=== PATIENT | female | born 1960 | race American Indian/Alaskan Native ===

== ENCOUNTER 2017-01-16 11:59 | Emergency (ER) | payer MEDICARE ==
[2017-01-16 12:13] VITALS: BMI 41.0
[2017-01-16 12:16] VITALS: RESP 18; TEMP 97.6; O2SAT 100
--- NOTE | 2017-01-16 12:25 | ED PDOC ---
Arrival/HPI - General Chief Complaint: Lower Extremity Problem/Injury Time Seen by Provider: 01/16/17 12:13 Historian: Patient - History of Present Illness Narrative History of Present Illness (Text): 01/16/17 12:17 56yo female in ED for left ankle pain s/p trauma an hour ago. States she twisted her ankle over uneven side walk. Pain with ambulation. denies any other complaint. Past Medical History - Provider Review Nursing Documentation Reviewed: Yes - Infectious Disease Hx of Infectious Diseases: None - Tetanus Immunization Tetanus Immunization: Unknown - Cardiac Hx Cardiac Disorders: Yes Hx Hypertension: Yes Hx Pacemaker: No - Pulmonary Hx Respiratory Disorders: No - Neurological Hx Neurological Disorder: Yes Hx Migraine: Yes Hx Paralysis: No - HEENT Hx HEENT Disorder: Yes Hx Cataracts: Yes (left eye) Hx Glaucoma: Yes (both eyes) Other/Comment: pseudotumor left eye removed - Endocrine/Metabolic Hx Endocrine Disorders: Yes Other/Comment: thyroid nodules - Hematological/Oncological Hx Blood Transfusions: No Hx Blood Transfusion Reaction: No - Integumentary Hx Dermatological Disorder: Yes Hx Eczema: Yes - Musculoskeletal/Rheumatological Hx Musculoskeletal Disorders: No - Gastrointestinal Hx Gastrointestinal Disorders: Yes Hx Crohn's Disease: Yes - Genitourinary/Gynecological Hx Genitourinary Disorders: No - Psychiatric Hx Psychophysiologic Disorder: No Hx Emotional Abuse: No Hx Physical Abuse: No Hx Substance Use: No - Surgical History Hx Appendectomy: Yes Hx Hysterectomy: Yes Hx Orthopedic Surgery: Yes (b/l knee r/p) Other/Comment: 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 - Anesthesia Hx Anesthesia: Yes Hx Anesthesia Reactions: No Hx Malignant Hyperthermia: No - Suicidal Assessment Feels Threatened In Home Enviroment: No Family/Social History - Physician Review Nursing Documentation Reviewed: Yes Family/Social History: Unknown Family HX Smoking Status: Former Smoker Hx Alcohol Use: Yes (OCC WINE) Hx Substance Use: No Hx Substance Use Treatment: No Allergies/Home Meds Allergies/Adverse Reactions: Allergies No Known Allergies Allergy (Verified 01/16/17 12:04) Home Medications: Home Meds Medication Instructions Recorded Confirmed Adalimumab [Humira] 40 mg SC TUE 05/11/15 01/16/17 Alprazolam 0.5 mg PO BID 05/11/15 01/16/17 Divalproex [Depakote] 500 mg PO DAILY 05/11/15 01/16/17 Metoprolol Succinate [Toprol XL] 25 mg PO QAM 05/11/15 01/16/17 Nortriptyline HCl [Pamelor] 25 mg PO BID 05/11/15 01/16/17 Oxycodone HCl/Acetaminophen 1 tab PO Q6H PRN 05/11/15 01/16/17 [Percocet 325 mg-7.5 mg] Rosuvastatin Calcium [Crestor] 20 mg PO QAM 05/11/15 01/16/17 Topiramate [Topamax] 100 mg PO DAILY 05/11/15 01/16/17 Travoprost [Travatan Z 5 ml] 1 drop OU HS 05/11/15 01/16/17 acetaZOLAMIDE [Diamox Sequels] 500 mg PO BID 05/11/15 01/16/17 Review of Systems - Physician Review All systems were reviewed & negative as marked: Yes - Review of Systems Constitutional: Normal Eyes: Normal ENT: Normal Respiratory: Normal Cardiovascular: Normal Gastrointestinal: Normal Genitourinary Female: Normal Musculoskeletal: Arthralgias (Left ankle pain) Skin: Normal Neurological: Normal Endocrine: Normal Hemo/Lymphatic: Normal Psychiatric: Normal Physical Exam Vital Signs Reviewed: Yes Vital Signs Temp Pulse Resp BP Pulse Ox 01/16/17 13:13 74 18 132/89 100 01/16/17 12:08 97.6 F 76 18 136/93 H 100 Temperature: Afebrile Blood Pressure: Normal Pulse: Regular Respiratory Rate: Normal Appearance: Positive for: Well-Appearing, Non-Toxic, Comfortable Pain Distress: None Mental Status: Positive for: Alert and Oriented X 3 - Systems Exam Head: Present: Atraumatic, Normocephalic Pupils: Present: PERRL Extroacular Muscles: Present: EOMI Conjunctiva: Present: Normal Mouth: Present: Moist Mucous Membranes Neck: Present: Normal Range of Motion Respiratory/Chest: Present: Clear to Auscultation, Good Air Exchange. No: Respiratory Distress, Accessory Muscle Use Cardiovascular: Present: Regular Rate and Rhythm, Normal S1, S2. No: Murmurs Abdomen: Present: Normal Bowel Sounds. No: Tenderness, Distention, Peritoneal Signs Back: Present: Normal Inspection Upper Extremity: Present: Normal Inspection. No: Cyanosis, Edema Lower Extremity: Present: NORMAL PULSES, Normal ROM, Tenderness (Left lateral ankle), Neurovascularly Intact. No: Edema, Swelling, Deformity Neurological: Present: GCS=15, CN II-XII Intact, Speech Normal Skin: Present: Warm, Dry, Normal Color. No: Rashes Psychiatric: Present: Alert, Oriented x 3, Normal Insight, Normal Concentration Medical Decision Making ED Course and Treatment: 01/16/17 12:55 Left ankle xray - No acute fracture/dislocation noted Eloy wrap applied. Walking cane given Advised to RICE ankle. To f/u with her PMD - RAD Interpretation Radiology Orders: 01/16/17 12:13 ANKLE LEFT 3 VIEWS ROUTINE [RAD] Stat - Medication Orders Current Medication Orders: Discontinued Medications Ibuprofen (Motrin Tab) 600 mg PO STAT STA Stop: 01/16/17 12:56 Last Admin: 01/16/17 13:02 Dose: 600 mg MAR Pain/Vitals Document 01/16/17 13:02 HI (Rec: 01/16/17 13:03 HI [facility] [id number]) Pain Reassessment Is This A Pain ReAssessment? No Sleep Is patient sleeping during reassessment? No Presence of Pain Presence of Pain Yes Pain Scale Used Pain Scale Used Numeric Location Left, Right or Bilateral Left Pain Location Body Site Ankle Intensity 7 Disposition/Present on Arrival - Present on Arrival Any Indicators Present on Arrival: No History of DVT/PE: No History of Uncontrolled Diabetes: No Urinary Catheter: No History of Decub. Ulcer: No History Surgical Site Infection Following: None - Disposition Have Diagnosis and Disposition been Completed?: Yes Diagnosis: Ankle sprain Disposition: HOME/ ROUTINE Disposition Time: 13:00 Patient Plan: Discharge Patient Problems: Current Active Problems Problem Status Onset Ankle sprain Acute Condition: STABLE Discharge Instructions (ExitCare): Ankle Sprain (ED) Additional Instructions: Rest, ice, compress and elevate ankle Follow up with your Doctor Return to ED for any new symptoms Prescriptions: Ibuprofen [Motrin Tab] 600 mg PO Q6 #20 tab Referrals: Larry Fishman MD [Primary Care Provider] - Follow up with primary Forms: [employer] (Armenian)
[2017-01-16 13:13] VITALS: BP 132/89; PULSE 74
--- NOTE | 2017-01-16 13:36 | RAD ---
PROCEDURE: Left Ankle Radiographs. HISTORY: ankle pain COMPARISON: None FINDINGS: BONES: Normal. No fracture. JOINTS: Normal. No osteoarthritis. Ankle mortise maintained. Talar dome intact SOFT TISSUES: Small pretibial calcifications are appreciated suggestive of probable phleboliths and there is a prominent plantar calcaneal spur identified as well. OTHER FINDINGS: None. IMPRESSION: No acute fracture or dislocation left ankle.
== END 2017-01-16 13:28 | disposition home or self-care (01) ==
LOC: ED 11:59
DX: S93.402A Sprain of unspecified ligament of left ankle, initial encounter (principal); X50.1XXA Overexertion from prolonged static or awkward postures, initial encounter; Y92.480 Sidewalk as the place of occurrence of the external cause; I10 Essential (primary) hypertension; Z87.891 Personal history of nicotine dependence

== ENCOUNTER 2017-03-25 16:36 | Emergency (ER) | payer MEDICARE, BC ==
[2017-03-25 16:37] VITALS: BMI 38.8
[2017-03-25 17:06] VITALS: RESP 18; TEMP 98.4; O2SAT 100
--- NOTE | 2017-03-25 17:25 | ED PDOC ---
Arrival/HPI - General Chief Complaint: Abnormal Skin Integrity Time Seen by Provider: 03/25/17 17:07 - History of Present Illness Narrative History of Present Illness (Text): 57F c/o pain above her left eye after a fall 2 days ago on sunday night. she says she tripped on the stairs and hit her face on a step. no LOC. she comes in today bc the pain seems worse and also she has had some drainage from the corner of the eye. hx of glaucoma and sees Dr Sequeira. Past Medical History - Infectious Disease Hx of Infectious Diseases: None - Tetanus Immunization Tetanus Immunization: Unknown - Cardiac Hx Cardiac Disorders: Yes Hx Hypertension: Yes Hx Pacemaker: No - Pulmonary Hx Respiratory Disorders: No - Neurological Hx Neurological Disorder: Yes Hx Migraine: Yes Hx Paralysis: No - HEENT Hx HEENT Disorder: Yes Hx Cataracts: Yes (left eye) Hx Glaucoma: Yes (both eyes) Other/Comment: pseudotumor left eye removed - Endocrine/Metabolic Hx Endocrine Disorders: Yes Other/Comment: thyroid nodules - Hematological/Oncological Hx Blood Transfusions: No Hx Blood Transfusion Reaction: No - Integumentary Hx Dermatological Disorder: Yes Hx Eczema: Yes - Musculoskeletal/Rheumatological Hx Musculoskeletal Disorders: Yes - Gastrointestinal Hx Gastrointestinal Disorders: Yes Hx Crohn's Disease: Yes - Genitourinary/Gynecological Hx Genitourinary Disorders: No - Psychiatric Hx Psychophysiologic Disorder: No Hx Emotional Abuse: No Hx Physical Abuse: No Hx Substance Use: No - Surgical History Hx Orthopedic Surgery: Yes (L KNEE, R KNEE, B/L WRISTS) - Anesthesia Hx Anesthesia: Yes Hx Anesthesia Reactions: No Hx Malignant Hyperthermia: No - Suicidal Assessment Feels Threatened In Home Enviroment: No Family/Social History Family/Social History: Other (nc) Smoking Status: Former Smoker Hx Alcohol Use: Yes (OCC WINE) Hx Substance Use: No Hx Substance Use Treatment: No Allergies/Home Meds Allergies/Adverse Reactions: Allergies No Known Allergies Allergy (Verified 03/25/17 16:57) Home Medications: Home Meds Medication Instructions Recorded Confirmed Adalimumab [Humira] 40 mg SC TUE 05/11/15 03/25/17 Alprazolam 0.5 mg PO BID 05/11/15 03/25/17 Divalproex [Depakote] 500 mg PO DAILY 05/11/15 03/25/17 Metoprolol Succinate [Toprol XL] 25 mg PO QAM 05/11/15 03/25/17 Nortriptyline HCl [Pamelor] 25 mg PO BID 05/11/15 03/25/17 Oxycodone HCl/Acetaminophen 1 tab PO Q6H PRN 05/11/15 03/25/17 [Percocet 325 mg-7.5 mg] Rosuvastatin Calcium [Crestor] 20 mg PO QAM 05/11/15 03/25/17 Topiramate [Topamax] 100 mg PO DAILY 05/11/15 03/25/17 Travoprost [Travatan Z 5 ml] 1 drop OU HS 05/11/15 03/25/17 acetaZOLAMIDE [Diamox Sequels] 500 mg PO BID 05/11/15 03/25/17 Review of Systems - Review of Systems Constitutional: absent: Fevers Eyes: absent: Vision Changes, Photophobia ENT: absent: Hearing Changes Respiratory: absent: SOB Cardiovascular: absent: Chest Pain Gastrointestinal: absent: Nausea, Vomiting Musculoskeletal: absent: Neck Pain Neurological: absent: Headache Physical Exam Vital Signs Reviewed: Yes Vital Signs Temp Pulse Resp BP Pulse Ox 03/25/17 17:00 98.4 F 97 H 18 157/91 H 100 Appearance: Positive for: Well-Appearing, Non-Toxic, Comfortable Pain Distress: None Mental Status: Positive for: Alert and Oriented X 3 - Systems Exam Head: Present: Abrasion (supericial nasal bridge) Pupils: Present: PERRL, Other (globes are atraumatic without hemorrhage. no obvious lacrimal duct injury. no active drainage or bleeding. ) Extroacular Muscles: Present: EOMI Conjunctiva: Present: Normal Mouth: Present: Moist Mucous Membranes Nose (Internal): No: Septal Hematoma, Epistaxis Neck: Present: Normal Range of Motion. No: MIDLINE TENDERNESS Neurological: Present: GCS=15, CN II-XII Intact, Motor Func Grossly Intact, Normal Sensory Function, Other (no focal deficits) Medical Decision Making - RAD Interpretation Radiology Orders: 03/25/17 17:07 ORBITS/ FACIALS W/O CONTRAST [CT] Stat - Medication Orders Current Medication Orders: Discontinued Medications Ibuprofen (Motrin Tab) 800 mg PO STAT STA Stop: 03/25/17 17:09 Last Admin: 03/25/17 17:55 Dose: 800 mg Disposition/Present on Arrival - Present on Arrival Any Indicators Present on Arrival: No History of DVT/PE: No History of Uncontrolled Diabetes: No Urinary Catheter: No History of Decub. Ulcer: No History Surgical Site Infection Following: None - Disposition Have Diagnosis and Disposition been Completed?: Yes Diagnosis: Facial contusion Disposition: HOME/ ROUTINE Disposition Time: 18:59 Condition: STABLE Additional Instructions: Please follow up with Dr Sequeira on Sunday. Return to the ER for any worsening symptoms or for any other concerns. Referrals: Nicolas Sequeira MD [Staff Provider] - Follow up with primary Forms: [employer] (Australian)
--- NOTE | 2017-03-25 18:56 | CT ---
EXAM: CT Maxillofacial Without Intravenous Contrast EXAM DATE/TIME: 03/25/2017 5:07 PM CLINICAL HISTORY: 57 years old, female; Injury or trauma; Fall; Initial encounter; Abrasion; Nose and orbit/periorbital; Bilateral; Additional info: Fell facial pain TECHNIQUE: Axial computed tomography images of the face without intravenous contrast. All CT scans at this facility use one or more dose reduction techniques, viz.: automated exposure control; ma/kV adjustment per patient size (including targeted exams where dose is matched to indication; i.e. head); or iterative reconstruction technique. Coronal and sagittal reformatted images were created and reviewed. COMPARISON: There are no prior studies for comparison. FINDINGS: Bones/joints: There are no facial bone fractures. There are degenerative changes in the visualized cervical spine. Soft tissues: There are no facial masses. There is soft tissue swelling and bruising in the left cheek Orbits: There are no acute orbital abnormalities. Salivary glands: Parotid and submandibular glands are unremarkable. Sinuses: Unremarkable Ears and mastoids: Middle ears and mastoids are unremarkable. Dental: There are dental caries erosions. Streak artifact from dental fillings degrades image quality. Brain: No focal abnormalities are seen in visualized portion of the brain. IMPRESSION: Left facial bruising, no facial bone fracture; dental disease
[2017-03-25 19:44] VITALS: BP 143/68; PULSE 83
== END 2017-03-25 19:10 | disposition home or self-care (01) ==
LOC: ED 16:36
DX: S00.83XA Contusion of other part of head, initial encounter (principal); W10.8XXA Fall (on) (from) other stairs and steps, initial encounter; Y92.89 Other specified places as the place of occurrence of the external cause

== ENCOUNTER 2017-06-26 21:53 | Observation (INO) | payer MEDICARE, BC ==
--- NOTE | 2017-06-26 22:39 | ED PDOC ---
Arrival/HPI - General Chief Complaint: Psychiatric Evaluation Time Seen by Provider: 06/26/17 21:55 Historian: Patient - History of Present Illness Narrative History of Present Illness (Text): 06/26/17 22:36 Shirin Milian is a 57 year old female, whose past medical history includes depression, Crohn's disease, pseudotumor cerebri, hypertension, degenerative joint disease, and anemia, who presents to the Emergency department brought in by EMS accompanied by family status post overdose. states tonight patient told him she took 12 tablets of Viibryd. notes she has been depressed for a while and has been seen by a psychiatrist in the past. On arrival, patient is mildly-agitated and non-verbal. Limited HPI and ROS secondary to patient's altered mental status. Time/Duration: Other (tonight) Symptom Course: Unchanged Activities at Onset: Light Context: Home Past Medical History - Provider Review Nursing Documentation Reviewed: Yes - Infectious Disease Hx of Infectious Diseases: None - Tetanus Immunization Tetanus Immunization: Unknown - Cardiac Hx Cardiac Disorders: Yes Hx Hypertension: Yes - Pulmonary Hx Respiratory Disorders: No - Neurological Hx Neurological Disorder: Yes Hx Migraine: Yes - HEENT Hx HEENT Disorder: Yes Hx Cataracts: Yes (left eye) Hx Glaucoma: Yes (both eyes) Other/Comment: pseudotumor left eye removed - Renal Hx Renal Disorder: No - Endocrine/Metabolic Hx Endocrine Disorders: Yes Other/Comment: thyroid nodules - Hematological/Oncological Hx Blood Disorders: No - Integumentary Hx Dermatological Disorder: Yes Hx Eczema: Yes - Musculoskeletal/Rheumatological Hx Musculoskeletal Disorders: Yes - Gastrointestinal Hx Gastrointestinal Disorders: Yes Hx Crohn's Disease: Yes - Genitourinary/Gynecological Hx Genitourinary Disorders: No - Psychiatric Hx Psychophysiologic Disorder: No Hx Emotional Abuse: No Hx Physical Abuse: No Hx Substance Use: No - Surgical History Hx Orthopedic Surgery: Yes (L KNEE, R KNEE, B/L WRISTS) - Anesthesia Hx Anesthesia: Yes Hx Anesthesia Reactions: No Hx Malignant Hyperthermia: No - Suicidal Assessment Feels Threatened In Home Enviroment: No Family/Social History - Physician Review Nursing Documentation Reviewed: Yes Family/Social History: Unknown Family HX Smoking Status: Former Smoker Hx Alcohol Use: Yes (OCC WINE) Hx Substance Use: No Hx Substance Use Treatment: No Allergies/Home Meds Allergies/Adverse Reactions: Allergies No Known Allergies Allergy (Verified 06/26/17 22:20) Home Medications: Home Meds Medication Instructions Recorded Confirmed Divalproex [Depakote DR] 500 mg PO DAILY 05/11/15 06/26/17 Metoprolol Succinate [Toprol XL] 25 mg PO QAM 05/11/15 06/26/17 Topiramate [Topamax] 100 mg PO DAILY 05/11/15 06/26/17 acetaZOLAMIDE [Diamox Sequels 500 500 mg PO BID 05/11/15 06/26/17 mg SR Cap] Pantoprazole [Protonix EC Tab] 40 mg PO DAILY 06/26/17 06/26/17 Verapamil [Calan Tab] 80 mg PO TID 06/26/17 06/26/17 Review of Systems - Review of Systems Systems not reviewed;Unavailable: Altered Mental Status Psychiatric: Depression, Suicidal Ideation Physical Exam Vital Signs Reviewed: Yes Vital Signs Temp Pulse Resp BP Pulse Ox 06/27/17 01:05 82 16 138/82 96 06/27/17 00:06 89 18 119/69 96 06/26/17 22:50 98.1 F 88 12 141/88 96 Temperature: Afebrile Blood Pressure: Normal Pulse: Regular Respiratory Rate: Normal Appearance: Positive for: Well-Appearing Pain Distress: None Mental Status: Positive for: Agitated (Mildy-agitated, non-verbal) - Systems Exam Head: Present: Atraumatic, Normocephalic Pupils: Present: PERRL Extroacular Muscles: Present: EOMI Conjunctiva: Present: Normal Mouth: Present: Moist Mucous Membranes Respiratory/Chest: Present: Clear to Auscultation, Good Air Exchange. No: Respiratory Distress, Accessory Muscle Use Cardiovascular: Present: Regular Rate and Rhythm, Normal S1, S2. No: Murmurs Abdomen: No: Tenderness, Distention, Peritoneal Signs Upper Extremity: Present: Normal Inspection. No: Cyanosis, Edema Lower Extremity: Present: Normal Inspection. No: Edema Neurological: Present: CN II-XII Intact, Motor Func Grossly Intact, Normal Sensory Function, Other (Non-verbal) Skin: Present: Warm, Dry, Normal Color. No: Rashes Psychiatric: Present: Agitated (Mildly agitated) Medical Decision Making ED Course and Treatment: 06/26/17 22:36 Impression: 57 year old female brought in s/p overdose tonight. Plan: -- EKG -- Labs, alcohol level, CPK, valproic acid -- Urinalysis, urine drug screen -- Reassess and disposition Prior Visits: Notes and results from previous visits were reviewed. On 03/25/2017, pt was seen in the Emergency department s/p mechanical fall with pain over her left eye. Pt was d/c home. Progress Notes: Reviewed EKG, NSR at 92 bpm. QTc measures 470. 06/27/17 00:05 Case discussed with medical transcriber, who is aware and agrees with plan. 06/27/17 00:[address] Doe, who is aware and agrees with plan. Accepts pt in to hospitalist service. Pt will be admitted to the ICU for overdose. 06/27/17 01:20 rn discusswed with loyda abreu advises monitor for serotonin syndrome. pt initially agitated ativan given. - Lab Interpretations Lab Results: 06/26/17 22:58 06/26/17 23:40 Lab Results 06/26/17 23:40: Sodium 144, Potassium 3.6, Chloride 114 H, Carbon Dioxide 22, Anion Gap 12, BUN 15, Creatinine 1.0, Est GFR ( Amer) > 60, Est GFR (Non- Af Amer) 57, Random Glucose 111 H, Calcium 9.6, Total Bilirubin 0.1 L, AST 22, ALT 27, Alkaline Phosphatase 72, Total Creatine Kinase 126, Total Protein 6.8, Albumin 3.7, Globulin 3.1, Albumin/Globulin Ratio 1.2 06/26/17 22:58: Valproic Acid 52 06/26/17 22:58: Alcohol, Quantitative < 10 06/26/17 22:58: Salicylates < 1 L, Acetaminophen < 10.0 L 06/26/17 22:58: Urine Opiates Screen Negative, Urine Methadone Screen Negative, Ur Barbiturates Screen Negative, Ur Phencyclidine Scrn Negative, Ur Amphetamines Screen Negative, U Benzodiazepines Scrn Positive, U Oth Cocaine Metabols Negative, U Cannabinoids Screen Negative 06/26/17 22:58: Urine Color Yellow, Urine Appearance Sl cloudy, Urine pH 6.5, Ur Specific Onset 1.020, Urine Protein Negative, Urine Glucose (UA) Negative, Urine Ketones Negative, Urine Blood Trace-lysed H, Urine Nitrate Negative, Urine Bilirubin Negative, Urine Urobilinogen 0.2, Ur Leukocyte Esterase Small H , Urine RBC 0 - 2, Urine WBC 1 - 3, Ur Epithelial Cells 3 - 4, Urine Bacteria Small 06/26/17 22:58: WBC 7.5 D, RBC 4.27, Hgb 13.3, Hct 40.5, MCV 94.8, MCH 31.1, MCHC 32.8, RDW 14.7 H, Plt Count 228, MPV 11.0, Gran % 38.3 L, Lymph % (Auto) 52.7 H, Dade % (Auto) 7.7 H, Eos % (Auto) 1.2 L, Baso % (Auto) 0.1, Gran # 2.89 , Lymph # (Auto) 4.0 H, Dade # (Auto) 0.6, Eos # (Auto) 0.1, Baso # (Auto) 0.01 I have reviewed the lab results: Yes - EKG Interpretation Interpreted by ED Physician: Yes Type: 12 lead EKG - Medication Orders Current Medication Orders: Acetaminophen (Tylenol 325mg Tab) 650 mg PO Q4H PRN PRN Reason: headache Last Admin: 06/27/17 13:48 Dose: 650 mg [facility] Pain/Vitals Document 06/27/17 13:48 (Rec: 06/27/17 13:49 [id number]) Pain Reassessment Is This A Pain ReAssessment? No Presence of Pain Presence of Pain Yes Pain Scale Used Pain Scale Used Numeric Location Left, Right or Bilateral Bilateral Pain Location Body Systems Analyst Engineer Intensity 5 Scale Used Numeric Pain Behavior Rubbing Site Facial Grimacing Alleviating Factors Medication Re-Assess: [facility] Pain/Vitals Document 06/27/17 14:48 MMA (Rec: 06/27/17 16:42 MMA [id number]) Pain Reassessment Is This A Pain ReAssessment? Yes Sleep Is patient sleeping during reassessment? Yes Clonazepam (Klonopin) 0.5 mg PO HS EMELYN PRN Reason: Protocol Fluoxetine HCl (Prozac) 10 mg PO DAILY [facility] Last Admin: 06/27/17 10:08 Dose: 10 mg Lorazepam (Ativan) 1 mg IVP Q6H PRN; Protocol PRN Reason: Anxiety Pantoprazole Sodium (Protonix Inj) 40 mg IVP DAILY [facility] Last Admin: 06/27/17 10:08 Dose: 40 mg IVP Administration Document 06/27/17 10:08 MMA (Rec: 06/27/17 10:08 MMA [id number]) Charges for Administration # of IVP Administrations 1 Discontinued Medications Sodium Chloride (Sodium Chloride 0.9%) 1,000 mls @ 125 mls/hr IV .Q8H [facility] Last Admin: 06/27/17 01:56 Dose: 125 mls/hr eMAR Start Stop Document 06/27/17 01:56 SS (Rec: 06/27/17 01:57 SS [facility] [id number]) Intravenous Solution Start Date 06/27/17 Start Time 01:57 Lorazepam (Ativan) 1 mg IVP ONCE ONE PRN Reason: Protocol Stop: 06/26/17 23:10 Last Admin: 06/26/17 23:17 Dose: 1 mg IVP Administration Document 06/26/17 23:17 SS (Rec: 06/26/17 23:25 SS [facility] [id number]) Charges for Administration # of IVP Administrations 1 Re-Assess: Reassess Psych Meds Document 06/26/17 23:47 MHA (Rec: 06/27/17 05:48 [facility] [id number]) Reassess Psych Med Effective - Scribe Statement The provider has reviewed the documentation as recorded by the Kira Cline Provider Scribe Attestation: All medical record entries made by the Scribe were at my direction and personally dictated by me. I have reviewed the chart and agree that the record accurately reflects my personal performance of the history, physical exam, medical decision making, and the department course for this patient. I have also personally directed, reviewed, and agree with the discharge instructions and disposition. Disposition/Present on Arrival - Present on Arrival Any Indicators Present on Arrival: No History of DVT/PE: No History of Uncontrolled Diabetes: No Urinary Catheter: No History of Decub. Ulcer: No History Surgical Site Infection Following: None - Disposition Have Diagnosis and Disposition been Completed?: Yes Diagnosis: Overdose, Serotonin syndrome Disposition: HOSPITALIZED Disposition Time: 01:21 Patient Problems: Current Active Problems Problem Status Onset Overdose Acute Serotonin syndrome Acute Condition: CRITICAL
[2017-06-26 23:05] LABS: PH,URINE 6.5 (4.7-8.0); URINE BILIRUBIN NEGATIVE (NEGATIVE); URINE BLOOD TRACE-LYSED (NEGATIVE); URINE GLUCOSE (UA) NEGATIVE (NEGATIVE); URINE LEUKOCYTE ESTERASE SMALL Leu/uL (NEGATIVE); URINE PROTEIN NEGATIVE mg/dL (<30 mg/dL); URINE UROBILINOGEN 0.2 E.U./dL (<1 E.U./dL)
[2017-06-26 23:06] LABS: BASO # 0.01 K/mm3 (0.0-2.0); BASO % 0.1 % (0.0-3.0); EOS # 0.1 (0.0-0.7); EOS % 1.2 % (1.5-5.0); GRAN # 2.89 (1.4-6.5); GRAN % 38.3 % (50.0-68.0); HEMOGLOBIN 13.3 g/dL (12.0-16.0); LYMPH % 52.7 % (22.0-35.0); MEAN CELL VOLUME 94.8 fl (80.0-105.0); MEAN CORPUSCULAR HEMOGLOBIN 31.1 pg (25.0-35.0); MEAN CORPUSCULAR HGB CONC 32.8 g/dl (31.0-37.0); MONO # 0.6 (0.1-0.6); MONO % 7.7 % (1.0-6.0); RBC 4.27 10^6/uL (3.5-6.1); RED CELL DISTRIBUTION WIDTH 14.7 % (11.5-14.5); WHITE BLOOD COUNT 7.5 10^3/ul (4.5-11.0)
[2017-06-26 23:07] LABS: URINE APPEARANCE SL CLOUDY (CLEAR); URINE COLOR YELLOW (YELLOW)
[2017-06-26 23:14] LABS: ACETAMINOPHEN < 10.0 ug/ml (10.0-20.0); SALICYLATE < 1 mg/dL (2.0-20.0)
[2017-06-26 23:40] LABS: URINE BACTERIA SMALL (NEG); URINE RBC 0 - 2 /hpf (0-2)
[2017-06-26 23:41] LABS: BARBITURATES, UR NEGATIVE (NEGATIVE); BENZODIAZEPINES, UR POSITIVE (NEGATIVE); OPIATES, UR NEGATIVE (NEGATIVE); PHENCYCLIDINE, UR NEGATIVE (NEGATIVE)
[2017-06-27] LABS: ALB/GLOB RATIO 1.2 (1.1-1.8); ALBUMIN 3.7 g/dL (3.0-4.8); ALT/SGPT 27 U/L (7-56); AST/SGOT 22 U/L (14-36); BLOOD UREA NITROGEN 15 mg/dL (7-21); CALCIUM 9.6 mg/dL (8.4-10.5); GFR AFRICAN-AMERICAN > 60; GFR NON-AFRICAN AMERICAN 57
[2017-06-27] MEDS ORDERED: Sodium Chloride 0.9% 1,000 ML IV SCH (01:00)
--- NOTE | 2017-06-27 01:14 | CP.PCM.HP ---
<Christal Montero - Last Filed: 06/27/17 02:58> History of Present Illness - History of Present Illness History of Present Illness: PGY-2 h&p for hospitalist service 57 year old female, whose past medical history includes depression, Crohn's disease, pseudotumor cerebri, hypertension, degenerative joint disease, and anemia, who presents to the Emergency department brought in by EMS accompanied by family status post overdose. Patient is lethargic and sleepy, she is unable to answer question, history provided by family at bedside and ED. states tonight patient told him she took 12 tablets of Viibryd. notes she has been depressed for a while and has been seen by a psychiatrist in the past. states that they had a conversation earlier in the evening and she went to lay down, a few hours later patient told her she took 12 tablets of viibryd. Per ED on arrival, patient was mildly-agitated and non- verbal. Limited HPI and ROS secondary to patient's altered mental status. PMH:depression, Crohn's disease, pseudotumor cerebri, hypertension, degenerative joint disease, and anemia, PSH: bilateral knee, bilateral wrist social history: light smoker, social alcohol use, no illicit drug use family history: heart disease allergy: nkda Present on Admission - Present on Admission Any Indicators Present on Admission: No Review of Systems - Review of Systems Systems not reviewed;Unavailable: Altered Mental Status Past Patient History - Infectious Disease Hx of Infectious Diseases: None - Tetanus Immunizations Tetanus Immunization: Unknown - Past Social History Smoking Status: Former Smoker - CARDIAC Hx Cardiac Disorders: Yes Hx Hypertension: Yes - PULMONARY Hx Respiratory Disorders: No - NEUROLOGICAL Hx Neurological Disorder: Yes Hx Migraine: Yes - HEENT Hx HEENT Problems: Yes Hx Cataracts: Yes (left eye) Hx Glaucoma: Yes (both eyes) Other/Comment: pseudotumor left eye removed - RENAL Hx Chronic Kidney Disease: No - ENDOCRINE/METABOLIC Hx Endocrine Disorders: Yes Other/Comment: thyroid nodules - HEMATOLOGICAL/ONCOLOGICAL Hx Blood Disorders: No - INTEGUMENTARY Hx Dermatological Problems: Yes Hx Eczema: Yes - MUSCULOSKELETAL/RHEUMATOLOGICAL Hx Musculoskeletal Disorders: Yes - GASTROINTESTINAL Hx Gastrointestinal Disorders: Yes Hx Crohn's Disease: Yes - GENITOURINARY/GYNECOLOGICAL Hx Genitourinary Disorders: No - PSYCHIATRIC Hx Psychophysiologic Disorder: No Hx Emotional Abuse: No Hx Physical Abuse: No Hx Substance Use: No - SURGICAL HISTORY Hx Orthopedic Surgery: Yes (L KNEE, R KNEE, B/L WRISTS) - ANESTHESIA Hx Anesthesia: Yes Hx Anesthesia Reactions: No Hx Malignant Hyperthermia: No Meds Allergies/Adverse Reactions: Allergies Allergy/AdvReac Type Severity Reaction Status Date / Time No Known Allergies Allergy Verified 06/26/17 22:20 Physical Exam - Head Exam Head Exam: ATRAUMATIC, NORMOCEPHALIC - Eye Exam Eye Exam: Normal appearance, PERRL (right, s/p surgery left eye). absent: Scleral icterus Pupil Exam: absent: Fixed, Miosis, Mydriatic - ENT Exam ENT Exam: Mucous Membranes Moist - Respiratory Exam Respiratory Exam: Clear to Auscultation Bilateral, NORMAL BREATHING PATTERN. absent: Rhonchi, Wheezes, Respiratory Distress - Cardiovascular Exam Cardiovascular Exam: REGULAR RHYTHM, +S1, +S2. absent: Tachycardia, Diastolic murmur, Systolic Murmur - GI/Abdominal Exam GI & Abdominal Exam: Normal Bowel Sounds, Soft. absent: Distended, Firm, Tenderness - Extremities Exam Extremities exam: Positive for: normal inspection. Negative for: pedal edema - Expanded Neurological Exam Expanded Neurological exam: Protecting the Airway Coma Scale Eye Opening: SPONTANEOUS Coma Scale Motor Response: Localizes to Pain Coma Scale Verbal: Incomprehensible Coma Scale Total: 11 - Skin Skin Exam: Dry, Intact, Normal Color, Warm Results - Vital Signs Recent Vital Signs: Last Vital Signs Temp 98.1 F 06/26/17 22:50 Pulse 89 06/27/17 00:06 Resp 18 06/27/17 00:06 BP 119/69 06/27/17 00:06 Pulse Ox 96 06/27/17 00:06 - Labs Result Diagrams: 06/26/17 22:58 06/26/17 23:40 Labs: Laboratory Results - last 24 hr 06/26/17 06/26/17 06/26/17 22:58 22:58 22:58 WBC 7.5 D RBC 4.27 Hgb 13.3 Hct 40.5 MCV 94.8 MCH 31.1 MCHC 32.8 RDW 14.7 H Plt Count 228 MPV 11.0 Gran % 38.3 L Lymph % (Auto) 52.7 H Borden % (Auto) 7.7 H Eos % (Auto) 1.2 L Baso % (Auto) 0.1 Gran # 2.89 Lymph # (Auto) 4.0 H Borden # (Auto) 0.6 Eos # (Auto) 0.1 Baso # (Auto) 0.01 Sodium Potassium Chloride Carbon Dioxide Anion Gap BUN Creatinine Est GFR ( Amer) Est GFR (Non-Af Amer) Random Glucose Calcium Total Bilirubin AST ALT Alkaline Phosphatase Total Creatine Kinase Total Protein Albumin Globulin Albumin/Globulin Ratio Urine Color Yellow Urine Appearance Sl cloudy Urine pH 6.5 Ur Specific [place] 1.020 Urine Protein Negative Urine Glucose (UA) Negative Urine Ketones Negative Urine Blood Trace-lysed H Urine Nitrate Negative Urine Bilirubin Negative Urine Urobilinogen 0.2 Ur Leukocyte Esterase Small H Urine RBC 0 - 2 Urine WBC 1 - 3 Ur Epithelial Cells 3 - 4 Urine Bacteria Small Salicylates Urine Opiates Screen Negative Urine Methadone Screen Negative Acetaminophen Ur Barbiturates Screen Negative Valproic Acid Ur Phencyclidine Scrn Negative Ur Amphetamines Screen Negative U Benzodiazepines Scrn Positive U Oth Cocaine Metabols Negative U Cannabinoids Screen Negative Alcohol, Quantitative 06/26/17 06/26/17 06/26/17 22:58 22:58 22:58 WBC RBC Hgb Hct MCV MCH MCHC RDW Plt Count MPV Gran % Lymph % (Auto) B[place] % (Auto) Eos % (Auto) Baso % (Auto) Gran # Lymph # (Auto) B[place] # (Auto) Eos # (Auto) Baso # (Auto) Sodium Potassium Chloride Carbon Dioxide Anion Gap BUN Creatinine Est GFR ( Amer) Est GFR (Non-Af Amer) Random Glucose Calcium Total Bilirubin AST ALT Alkaline Phosphatase Total Creatine Kinase Total Protein Albumin Globulin Albumin/Globulin Ratio Urine Color Urine Appearance Urine pH Ur Specific [place] Urine Protein Urine Glucose (UA) Urine Ketones Urine Blood Urine Nitrate Urine Bilirubin Urine Urobilinogen Ur Leukocyte Esterase Urine RBC Urine WBC Ur Epithelial Cells Urine Bacteria Salicylates < 1 L Urine Opiates Screen Urine Methadone Screen Acetaminophen < 10.0 L Ur Barbiturates Screen Valproic Acid 52 Ur Phencyclidine Scrn Ur Amphetamines Screen U Benzodiazepines Scrn U Oth Cocaine Metabols U Cannabinoids Screen Alcohol, Quantitative < 10 06/26/17 23:40 WBC RBC Hgb Hct MCV MCH MCHC RDW Plt Count MPV Gran % Lymph % (Auto) [place] % (Auto) Eos % (Auto) Baso % (Auto) Gran # Lymph # (Auto) [place] # (Auto) Eos # (Auto) Baso # (Auto) Sodium 144 Potassium 3.6 Chloride 114 H Carbon Dioxide 22 Anion Gap 12 BUN 15 Creatinine 1.0 Est GFR ( Amer) > 60 Est GFR (Non-Af Amer) 57 Random Glucose 111 H Calcium 9.6 Total Bilirubin 0.1 L AST 22 ALT 27 Alkaline Phosphatase 72 Total Creatine Kinase 126 Total Protein 6.8 Albumin 3.7 Globulin 3.1 Albumin/Globulin Ratio 1.2 Urine Color Urine Appearance Urine pH Ur Specific [place] Urine Protein Urine Glucose (UA) Urine Ketones Urine Blood Urine Nitrate Urine Bilirubin Urine Urobilinogen Ur Leukocyte Esterase Urine RBC Urine WBC Ur Epithelial Cells Urine Bacteria Salicylates Urine Opiates Screen Urine Methadone Screen Acetaminophen Ur Barbiturates Screen Valproic Acid Ur Phencyclidine Scrn Ur Amphetamines Screen U Benzodiazepines Scrn U Oth Cocaine Metabols U Cannabinoids Screen Alcohol, Quantitative Assessment & Plan - Assessment and Plan (Free Text) Assessment: 57 year old female, whose past medical history includes depression, Crohn's disease, pseudotumor cerebri, hypertension, degenerative joint disease, and anemia, who presents status post overdose with 12 tablets of Viibryd. Plan: Overdose - r/o serotonin syndrome - patient is protecting airway - EKG in ED showed NSR with prolonged QT 470 - poison control notified recommended repeat EKG and Depakote level - UDS positive for benzodiazepine - cmp and CK level within normal limits - repeat EKG q6 - neurochecks q2 - IVF NS @125 - npo - 1:1 for possible SI - ativan 1mg q6 prn - hold all psych meds - restart home medications once patient is more alert and able to tolerate PO - psych consult <Brook PARRA,Narinder - Last Filed: 06/27/17 07:01> Results - Vital Signs Recent Vital Signs: Last Vital Signs Temp 98.7 F 06/27/17 03:34 Pulse 77 06/27/17 06:10 Resp 22 06/27/17 06:10 BP 153/86 H 06/27/17 06:00 Pulse Ox 99 06/27/17 06:10 - Labs Result Diagrams: 06/26/17 22:58 06/26/17 23:40 Attending/Attestation - Attestation I have personally seen and examined this patient.: Yes I have fully participated in the care of the patient.: Yes I have reviewed all pertinent clinical information: Yes Notes (Text): -I agree with the above H&P completed by the resident physician with the following additions and/or changes: -The patient is a 57 year old woman with HTN, Crohn's disease and depression who ingested 12 pills of Vilazodone (SSRI/5-HT1A Receptor Partial Agonist) and presented with AMS and drowsiness. Poison control has been notified. The patient is able to protect her airway. UDS also positive for Benzo's. She was suppose to be admitted to the telemetry ayon but due to hospital protocols, she will be observed in the ICU overnight. We will check serial EKG's and place her on aggressive IVF's. Her vitals signs have remained relatively normal and suspicion for seratonin syndrome is low. Will continue to monitor closely and place patient with a 1:1 sitter due to possible suicidal ideation.
[2017-06-27 04:06] VITALS: BMI 41.7
--- NOTE | 2017-06-27 12:04 | CP.CCUPN ---
<Alireza Gerber - Last Filed: 06/27/17 12:00> CCU Subjective - Physician Review Subjective (Free Text): Patient seen and evaluated bedside. No acute issues overnight. Patient awake, denies any chest pain, shortness of breath, abdominal pain, headache, or any other complaints at this time. 06/27/17 12:00 CCU Objective - Vital Signs / Intake & Output Vital Signs (Last 4 hours): Vital Signs Temp Pulse Resp BP Pulse Ox 06/27/17 10:31 98.5 F 06/27/17 10:20 71 20 96 06/27/17 10:10 69 20 96 06/27/17 10:00 73 25 H 97 06/27/17 09:50 72 24 97 06/27/17 09:40 69 21 98 06/27/17 09:30 72 20 99 06/27/17 09:20 66 19 98 06/27/17 09:10 69 20 100 06/27/17 09:04 70 20 06/27/17 09:00 70 15 98 06/27/17 08:50 75 27 H 97 06/27/17 08:44 76 16 148/70 99 06/27/17 08:40 77 23 98 06/27/17 08:30 75 27 H 98 06/27/17 08:29 75 06/27/17 08:20 73 19 99 06/27/17 08:10 69 25 H 98 Intake and Output (Last 8hrs): Intake & Output 06/26/17 06/27/17 06/27/17 22:59 06:59 14:59 Intake Total 620 Output Total 700 Balance -80 Weight 213 lb 11.2 oz Intake: IV 620 Left Hand 620 Output: Urine 700 Urethral (Jasmine) 700 Other: Voiding Method Indwelling Catheter - Physical Exam Head: Positive for: Atraumatic, Normocephalic Pupils: Positive for: PERRL Extroacular Muscles: Positive for: EOMI Conjunctiva: Positive for: Normal Mouth: Positive for: Moist Mucous Membranes Respiratory/Chest: Positive for: Clear to Auscultation, Good Air Exchange. Negative for: Respiratory Distress, Accessory Muscle Use Cardiovascular: Positive for: Regular Rate and Rhythm, Normal S1, S2. Negative for: Murmurs Abdomen: Negative for: Tenderness, Distention, Peritoneal Signs Upper Extremity: Positive for: Normal Inspection. Negative for: Cyanosis, Edema Lower Extremity: Positive for: Normal Inspection. Negative for: Edema Neurological: Positive for: GCS=15, CN II-XII Intact, Motor Func Grossly Intact , Normal Sensory Function, Other (Non-verbal) Skin: Positive for: Warm, Dry, Normal Color. Negative for: Rashes Psychiatric: Positive for: Alert, Oriented x 3, Depressed Mood - Medications Active Medications: Active Medications Generic Name Dose Route Start Last Admin Trade Name Freq PRN Reason Stop Dose Admin Fluoxetine HCl 10 mg 06/27/17 10:00 06/27/17 10:08 Prozac PO 10 mg DAILY EMELYN Administration Sodium Chloride 1,000 mls @ 125 mls/hr 06/27/17 01:00 06/27/17 01:56 Sodium Chloride 0.9% IV 125 mls/hr .Q8H EMELYN Administration Lorazepam 1 mg 06/27/17 02:46 Ativan IVP Q6H PRN Anxiety Protocol Pantoprazole Sodium 40 mg 06/27/17 10:00 06/27/17 10:08 Protonix Inj IVP 40 mg DAILY EMELYN Administration - Patient Studies Lab Studies: Lab Studies 06/27/17 Range/Units 07:20 Phosphorus 3.7 (2.5-4.5) mg/dL Magnesium 2.1 (1.7-2.2) mg/dL Laboratory Results - last 24 hr 06/27/17 07:20 Phosphorus 3.7 Magnesium 2.1 EKG/Cardiology Studies: Cardiology / EKG Studies 06/27/17 04:00 ELECTROCARDIOGRAM Q6H Comment: Reason For Exam: overdose 06/27/17 10:00 ELECTROCARDIOGRAM Q6H Comment: Reason For Exam: overdose 06/27/17 16:00 ELECTROCARDIOGRAM Q6H Comment: Reason For Exam: overdose Review of Systems - Cardiovascular Cardiovascular: absent: Chest Pain, Chest Pain with Activity, Claudication, Dyspnea - Respiratory Respiratory: absent: Cough, Dyspnea - Gastrointestinal Gastrointestinal: absent: Abdominal Pain, Cramping, Diarrhea, Nausea, Vomiting - Neurological Neurological: absent: Weakness - Psychiatric Psychiatric: Depression Critical Care Progress Note - Nutrition Nutrition: Nutrition Category Date Time Status Diabetic [Consistent Carbohydrate] [DIET] Diets 06/27/17 Breakfast Ordered Assessment/Plan - Assessment and Plan (Free Text) Assessment: 57 year old female, whose past medical history includes depression, Crohn's disease, pseudotumor cerebri, hypertension, degenerative joint disease, and anemia, who presents status post overdose with 12 tablets of Viibryd. Patient stable and doing well clinically. Plan: Plan: - EKG - maintain oxygen saturation >90% - poison control - labs - UA - UDS positive for benzodiazepine - neurochecks q2 - IVF NS @125 - 1:1 for possible SI - ativan 1mg q6 prn - restart home medications per psych - psych consult -transfer to telemetry <Boy Snider - Last Filed: 06/27/17 13:46> CCU Objective - Vital Signs / Intake & Output Vital Signs (Last 4 hours): Vital Signs Temp Pulse Resp BP Pulse Ox 06/27/17 12:30 70 44 H 99 06/27/17 12:20 66 25 H 99 06/27/17 12:10 68 24 99 06/27/17 12:00 70 12 131/71 100 06/27/17 11:50 74 22 98 06/27/17 11:40 70 21 96 06/27/17 11:30 65 22 99 06/27/17 11:22 66 14 06/27/17 11:00 65 21 150/79 96 06/27/17 10:50 68 22 100 06/27/17 10:40 66 19 97 06/27/17 10:31 98.5 F 06/27/17 10:30 65 23 100 06/27/17 10:20 71 20 96 06/27/17 10:10 69 20 96 06/27/17 10:00 73 25 H 97 06/27/17 09:50 72 24 97 Intake and Output (Last 8hrs): Intake & Output 06/26/17 06/27/17 06/27/17 22:59 06:59 14:59 Intake Total 620 Output Total 700 Balance -80 Weight 213 lb 11.2 oz Intake: IV 620 Left Hand 620 Output: Urine 700 Urethral (Jasmine) 700 Other: Voiding Method Indwelling Catheter - Medications Active Medications: Active Medications Generic Name Dose Route Start Last Admin Trade Name Freq PRN Reason Stop Dose Admin Clonazepam 0.5 mg 06/27/17 22:00 Klonopin PO [facility] Protocol Fluoxetine HCl 10 mg 06/27/17 10:00 06/27/17 10:08 Prozac PO 10 mg DAILY EMELYN Administration Lorazepam 1 mg 06/27/17 02:46 Ativan IVP Q6H PRN Anxiety Protocol Pantoprazole Sodium 40 mg 06/27/17 10:00 06/27/17 10:08 Protonix Inj IVP 40 mg DAILY EMELYN Administration - Patient Studies Lab Studies: Lab Studies 06/27/17 Range/Units 07:20 Phosphorus 3.7 (2.5-4.5) mg/dL Magnesium 2.1 (1.7-2.2) mg/dL Laboratory Results - last 24 hr 06/27/17 07:20 Phosphorus 3.7 Magnesium 2.1 EKG/Cardiology Studies: Cardiology / EKG Studies 06/27/17 04:00 ELECTROCARDIOGRAM Q6H Comment: Reason For Exam: overdose 06/27/17 10:00 ELECTROCARDIOGRAM Q6H Comment: Reason For Exam: overdose 06/27/17 16:00 ELECTROCARDIOGRAM Q6H Comment: Reason For Exam: overdose Critical Care Progress Note - Nutrition Nutrition: Nutrition Category Date Time Status Diabetic [Consistent Carbohydrate] [DIET] Diets 06/27/17 Breakfast Ordered Assessment/Plan - Assessment and Plan (Free Text) Plan: Patient seen and examined, with resident, agree with note with following additions/exceptions: Pt is 57 year old female, wPMHx depression, Crohn's disease, pseudotumor cerebri , hypertension, degenerative joint disease, and anemia, presented status post overdose with 12 tablets of Viibryd. Currently afebrile, HD stable, comfortable in NAD, doing well, awake, alert. EKG with normal Qtc, NSR. IVF. Cont with Stable, transfer to floor
--- NOTE | 2017-06-27 14:41 | CP.PCM.DIS ---
<JustinMateo - Last Filed: 06/29/17 16:06> Provider - Provider Date of Admission: 06/27/17 00:07 Attending physician: Essie Rae MD Primary care physician: Larry Fishman MD Consults: Dr. Kapoor - Psych Time Spent in preparation of Discharge (in minutes): 45 Hospital Course - Lab Results Lab Results: Most Recent Lab Values WBC 7.5 10^3/ul (4.5-11.0) D 06/26/17 22:58 RBC 4.27 10^6/uL (3.5-6.1) 06/26/17 22:58 Hgb 13.3 g/dL (12.0-16.0) 06/26/17 22:58 Hct 40.5 % (36.0-48.0) 06/26/17 22:58 MCV 94.8 fl (80.0-105.0) 06/26/17 22:58 MCH 31.1 pg (25.0-35.0) 06/26/17 22:58 MCHC 32.8 g/dl (31.0-37.0) 06/26/17 22:58 RDW 14.7 % (11.5-14.5) H 06/26/17 22:58 Plt Count 228 10^3/uL (120.0-450.0) 06/26/17 22:58 MPV 11.0 fl (7.0-11.0) 06/26/17 22:58 Gran % 38.3 % (50.0-68.0) L 06/26/17 22:58 Lymph % (Auto) 52.7 % (22.0-35.0) H 06/26/17 22:58 Evangeline % (Auto) 7.7 % (1.0-6.0) H 06/26/17 22:58 Eos % (Auto) 1.2 % (1.5-5.0) L 06/26/17 22:58 Baso % (Auto) 0.1 % (0.0-3.0) 06/26/17 22:58 Gran # 2.89 (1.4-6.5) 06/26/17 22:58 Lymph # (Auto) 4.0 (1.2-3.4) H 06/26/17 22:58 Evangeline # (Auto) 0.6 (0.1-0.6) 06/26/17 22:58 Eos # (Auto) 0.1 (0.0-0.7) 06/26/17 22:58 Baso # (Auto) 0.01 K/mm3 (0.0-2.0) 06/26/17 22:58 Sodium 144 mmol/L (132-148) 06/26/17 23:40 Potassium 3.6 mmol/L (3.6-5.0) 06/26/17 23:40 Chloride 114 mmol/L (98-107) H 06/26/17 23:40 Carbon Dioxide 22 mmol/L (21-33) 06/26/17 23:40 Anion Gap 12 (10-20) 06/26/17 23:40 BUN 15 mg/dL (7-21) 06/26/17 23:40 Creatinine 1.0 mg/dl (0.7-1.2) 06/26/17 23:40 Est GFR ( Amer) > 60 06/26/17 23:40 Est GFR (Non-Af Amer) 57 06/26/17 23:40 Random Glucose 111 mg/dL (70-110) H 06/26/17 23:40 Calcium 9.6 mg/dL (8.4-10.5) 06/26/17 23:40 Phosphorus 3.7 mg/dL (2.5-4.5) 06/27/17 07:20 Magnesium 2.1 mg/dL (1.7-2.2) 06/27/17 07:20 Total Bilirubin 0.1 mg/dL (0.2-1.3) L 06/26/17 23:40 AST 22 U/L (14-36) 06/26/17 23:40 ALT 27 U/L (7-56) 06/26/17 23:40 Alkaline Phosphatase 72 U/L (38-126) 06/26/17 23:40 Total Creatine Kinase 126 U/L (35-230) 06/26/17 23:40 Total Protein 6.8 g/dL (5.8-8.3) 06/26/17 23:40 Albumin 3.7 g/dL (3.0-4.8) 06/26/17 23:40 Globulin 3.1 gm/dL 06/26/17 23:40 Albumin/Globulin Ratio 1.2 (1.1-1.8) 06/26/17 23:40 Urine Color Yellow (YELLOW) 06/26/17 22:58 Urine Appearance Sl cloudy (CLEAR) 06/26/17 22:58 Urine pH 6.5 (4.7-8.0) 06/26/17 22:58 Ur Specific Sutton 1.020 (1.005-1.035) 06/26/17 22:58 Urine Protein Negative mg/dL (<30 mg/dL) 06/26/17 22:58 Urine Glucose (UA) Negative mg/dL (NEGATIVE) 06/26/17 22:58 Urine Ketones Negative mg/dL (NEGATIVE) 06/26/17 22:58 Urine Blood Trace-lysed (NEGATIVE) H 06/26/17 22:58 Urine Nitrate Negative (NEGATIVE) 06/26/17 22:58 Urine Bilirubin Negative (NEGATIVE) 06/26/17 22:58 Urine Urobilinogen 0.2 E.U./dL (<1 E.U./dL) 06/26/17 22:58 Ur Leukocyte Esterase Small Michelle/uL (NEGATIVE) H 06/26/17 22:58 Urine RBC 0 - 2 /hpf (0-2) 06/26/17 22:58 Urine WBC 1 - 3 /hpf (0-6) 06/26/17 22:58 Ur Epithelial Cells 3 - 4 /hpf (0-5) 06/26/17 22:58 Urine Bacteria Small (NEG) 06/26/17 22:58 Salicylates < 1 mg/dL (2.0-20.0) L 06/26/17 22:58 Urine Opiates Screen Negative (NEGATIVE) 06/26/17 22:58 Urine Methadone Screen Negative (NEGATIVE) 06/26/17 22:58 Acetaminophen < 10.0 ug/ml (10.0-20.0) L 06/26/17 22:58 Ur Barbiturates Screen Negative (NEGATIVE) 06/26/17 22:58 Valproic Acid 52 ug/mL (50.0-100.0) 06/26/17 22:58 Ur Phencyclidine Scrn Negative (NEGATIVE) 06/26/17 22:58 Ur Amphetamines Screen Negative (NEGATIVE) 06/26/17 22:58 U Benzodiazepines Scrn Positive (NEGATIVE) 06/26/17 22:58 U Oth Cocaine Metabols Negative (NEGATIVE) 06/26/17 22:58 U Cannabinoids Screen Negative (NEGATIVE) 06/26/17 22:58 Alcohol, Quantitative < 10 mg/dL (0-10) 06/26/17 22:58 - Hospital Course Hospital Course: HPI on day of admission: 57 year old female, whose past medical history includes depression, Crohn's disease, pseudotumor cerebri, hypertension, degenerative joint disease, and anemia, who presents to the Emergency department brought in by EMS accompanied by family status post overdose. Patient is lethargic and sleepy, she is unable to answer question, history provided by family at bedside and ED. states tonight patient told him she took 12 tablets of Viibryd. notes she has been depressed for a while and has been seen by a psychiatrist in the past. states that they had a conversation earlier in the evening and she went to lay down, a few hours later patient told her she took 12 tablets of viibryd. Per ED on arrival, patient was mildly-agitated and non- verbal. Limited HPI and ROS secondary to patient's altered mental status. Poison control was contacted. Patient's repeat EKG was taken, and it showed NSR. Poison control signed off the case. Patient was monitored for one day, and then Dr. Kapoor admitted her to psych. Patient was medically cleared for discharge. Discharge Exam - Head Exam Head Exam: ATRAUMATIC, NORMAL INSPECTION, NORMOCEPHALIC - Eye Exam Eye Exam: EOMI, Normal appearance, PERRL Pupil Exam: NORMAL ACCOMODATION, PERRL - Respiratory Exam Respiratory Exam: Clear to PA & Lateral, NORMAL BREATHING PATTERN, UNREMARKABLE - Cardiovascular Exam Cardiovascular Exam: REGULAR RHYTHM - GI/Abdominal Exam GI & Abdominal Exam: Normal Bowel Sounds, Unremarkable - Extremities Exam Extremities exam: full ROM, normal inspection - Back Exam Back exam: NORMAL INSPECTION - Neurological Exam Neurological exam: Alert, CN II-XII Intact, Normal Gait, Oriented x3 - Psychiatric Exam Psychiatric exam: Normal Affect, Normal Mood - Skin Skin Exam: Intact, Normal Color, Warm Discharge Plan - Discharge Medications Prescriptions: Atorvastatin [Lipitor] 10 mg PO DIN #30 tab - Follow Up Plan Condition: CRITICAL Disposition: DISCHARGE TO PSYCH HOSPITAL Instructions: Depression, Adult (DC), Serotonin Syndrome, Suicide Prevention Additional Instructions: 1. Please follow up with Dr. Fishman after discharge Referrals: Larry Fishman MD [Primary Care Provider] - <Essie Rae - Last Filed: 06/29/17 16:55> Provider - Provider Date of Admission: 06/27/17 00:07 Attending physician: Essie Rae MD Primary care physician: Larry Fishman MD Hospital Course - Lab Results Lab Results: Micro Results 06/27/17 03:24 Naris MRSA Culture (Admit) - Final MRSA NOT DETECTED Most Recent Lab Values WBC 7.5 10^3/ul (4.5-11.0) D 06/26/17 22:58 RBC 4.27 10^6/uL (3.5-6.1) 06/26/17 22:58 Hgb 13.3 g/dL (12.0-16.0) 06/26/17 22:58 Hct 40.5 % (36.0-48.0) 06/26/17 22:58 MCV 94.8 fl (80.0-105.0) 06/26/17 22:58 MCH 31.1 pg (25.0-35.0) 06/26/17 22:58 MCHC 32.8 g/dl (31.0-37.0) 06/26/17 22:58 RDW 14.7 % (11.5-14.5) H 06/26/17 22:58 Plt Count 228 10^3/uL (120.0-450.0) 06/26/17 22:58 MPV 11.0 fl (7.0-11.0) 06/26/17 22:58 Gran % 38.3 % (50.0-68.0) L 06/26/17 22:58 Lymph % (Auto) 52.7 % (22.0-35.0) H 06/26/17 22:58 Evangeline % (Auto) 7.7 % (1.0-6.0) H 06/26/17 22:58 Eos % (Auto) 1.2 % (1.5-5.0) L 06/26/17 22:58 Baso % (Auto) 0.1 % (0.0-3.0) 06/26/17 22:58 Gran # 2.89 (1.4-6.5) 06/26/17 22:58 Lymph # (Auto) 4.0 (1.2-3.4) H 06/26/17 22:58 Evangeline # (Auto) 0.6 (0.1-0.6) 06/26/17 22:58 Eos # (Auto) 0.1 (0.0-0.7) 06/26/17 22:58 Baso # (Auto) 0.01 K/mm3 (0.0-2.0) 06/26/17 22:58 Sodium 144 mmol/L (132-148) 06/26/17 23:40 Potassium 3.6 mmol/L (3.6-5.0) 06/26/17 23:40 Chloride 114 mmol/L (98-107) H 06/26/17 23:40 Carbon Dioxide 22 mmol/L (21-33) 06/26/17 23:40 Anion Gap 12 (10-20) 06/26/17 23:40 BUN 15 mg/dL (7-21) 06/26/17 23:40 Creatinine 1.0 mg/dl (0.7-1.2) 06/26/17 23:40 Est GFR ( Amer) > 60 06/26/17 23:40 Est GFR (Non-Af Amer) 57 06/26/17 23:40 Random Glucose 111 mg/dL (70-110) H 06/26/17 23:40 Calcium 9.6 mg/dL (8.4-10.5) 06/26/17 23:40 Phosphorus 3.7 mg/dL (2.5-4.5) 06/27/17 07:20 Magnesium 2.1 mg/dL (1.7-2.2) 06/27/17 07:20 Total Bilirubin 0.1 mg/dL (0.2-1.3) L 06/26/17 23:40 AST 22 U/L (14-36) 06/26/17 23:40 ALT 27 U/L (7-56) 06/26/17 23:40 Alkaline Phosphatase 72 U/L (38-126) 06/26/17 23:40 Total Creatine Kinase 126 U/L (35-230) 06/26/17 23:40 Total Protein 6.8 g/dL (5.8-8.3) 06/26/17 23:40 Albumin 3.7 g/dL (3.0-4.8) 06/26/17 23:40 Globulin 3.1 gm/dL 06/26/17 23:40 Albumin/Globulin Ratio 1.2 (1.1-1.8) 06/26/17 23:40 Urine Color Yellow (YELLOW) 06/26/17 22:58 Urine Appearance Sl cloudy (CLEAR) 06/26/17 22:58 Urine pH 6.5 (4.7-8.0) 06/26/17 22:58 Ur Specific Sutton 1.020 (1.005-1.035) 06/26/17 22:58 Urine Protein Negative mg/dL (<30 mg/dL) 06/26/17 22:58 Urine Glucose (UA) Negative mg/dL (NEGATIVE) 06/26/17 22:58 Urine Ketones Negative mg/dL (NEGATIVE) 06/26/17 22:58 Urine Blood Trace-lysed (NEGATIVE) H 06/26/17 22:58 Urine Nitrate Negative (NEGATIVE) 06/26/17 22:58 Urine Bilirubin Negative (NEGATIVE) 06/26/17 22:58 Urine Urobilinogen 0.2 E.U./dL (<1 E.U./dL) 06/26/17 22:58 Ur Leukocyte Esterase Small Michelle/uL (NEGATIVE) H 06/26/17 22:58 Urine RBC 0 - 2 /hpf (0-2) 06/26/17 22:58 Urine WBC 1 - 3 /hpf (0-6) 06/26/17 22:58 Ur Epithelial Cells 3 - 4 /hpf (0-5) 06/26/17 22:58 Urine Bacteria Small (NEG) 06/26/17 22:58 Salicylates < 1 mg/dL (2.0-20.0) L 06/26/17 22:58 Urine Opiates Screen Negative (NEGATIVE) 06/26/17 22:58 Urine Methadone Screen Negative (NEGATIVE) 06/26/17 22:58 Acetaminophen < 10.0 ug/ml (10.0-20.0) L 06/26/17 22:58 Ur Barbiturates Screen Negative (NEGATIVE) 06/26/17 22:58 Valproic Acid 52 ug/mL (50.0-100.0) 06/26/17 22:58 Ur Phencyclidine Scrn Negative (NEGATIVE) 06/26/17 22:58 Ur Amphetamines Screen Negative (NEGATIVE) 06/26/17 22:58 U Benzodiazepines Scrn Positive (NEGATIVE) 04 22:58 U Oth Cocaine Metabols Negative (NEGATIVE) 06/26/17 22:58 U Cannabinoids Screen Negative (NEGATIVE) 06/26/17 22:58 Alcohol, Quantitative < 10 mg/dL (0-10) 06/26/17 22:58 Attending/Attestation - Attestation I have personally seen and examined this patient.: Yes I have fully participated in the care of the patient.: Yes I have reviewed all pertinent clinical information, including history, physical exam and plan: Yes Notes (Text): 06/29/17 16:53 Attending note; Patient seen and examined with the resident in ICU. Patient is alert, awake and oriented. Tolerating diet. Flat affect. Patient is a 57 year old female, whose past medical history includes depression , Crohn's disease, pseudotumor cerebri, hypertension, degenerative joint disease , and anemia, who presents to the Emergency department brought in by EMS accompanied by family status post overdose. Patient had an intentional overdose of anti depressent.. Monitored in ICU. Poison control was contacted. Cleared by poison control. Labs stable. EKG normal. Patient is currently alert, awake and oriented. Still with flat affect. Psychiatric evaluation appreciated. Patient agreed for transfer to 5B psychiatric floor for further treatment. Hypertension; continue medications. Monitor closely. Patient is medically stable for now. Patient is tolerating diet. Ambulating fine. Transfer to psychiatric floor today. Upon discharge the patient will follow-up with PMD Dr. Fishman. Diagnosis; Depression Drug overdose Hypertension Obesity
[2017-06-27 15:13] VITALS: TEMP 98.6
[2017-06-27 18:41] VITALS: BP 131/75; PULSE 69; RESP 22; O2SAT 99
--- NOTE | 2017-06-27 20:48 | CARD ---
APPROVED REPORT EKG Measurement Heart [id number] <Conclusion> Normal sinus rhythm Normal ECG
--- NOTE | 2017-06-27 20:57 | CARD ---
APPROVED REPORT EKG Measurement Heart [id number] <Conclusion> Normal sinus rhythm Normal ECG
--- NOTE | 2017-06-28 08:20 | CON ---
DATE: 06/27/2017 HISTORY OF PRESENT ILLNESS: Patient is a 57-year-old female with a psychiatric history of major depression. No prior psychiatric hospitalizations. Current treatment with Dr. Diaz for the last 2 years and compliant with Viibryd 20 mg daily for depression for the last month, who has numerous medical issues including Crohn's disease, hypertension, degenerative joint disease and anemia, who presented to the ER yesterday after she was brought in by EMS after she told to her that she took 12 tablets of Viibryd as an overdose attempt. Psychiatrist consulted because of patient's overdose to determine her level of stability. I met with patient at bedside, and she is alert and oriented x3. Specifically, she is aware of circumstances and month, year and location. The patient readily admits that she purposefully overdosed on 12 tablets of Viibryd and she did this to escape her current feelings of depression and as a way to end her life. She reports that she remains depressed, and reports symptoms of poor motivation, feeling overwhelmed, crying spells, fatigue and excessive sleep. She reports her major stressor is her relationship with her Ana, who has been drinking a lot more in the last two weeks. Patient's psychiatrist, Dr. Daiz also discontinued Ritalin, which she was taking 10 mg twice a day approximately 2 weeks ago after she appeared to show some improvement after taking this medication for a month. Patient noticed that her mood symptoms worsened in the last week or so, although appeared to improve without Ritalin initially. She is ambivalent about being alive. Her affect is constricted and flat, and although she is responsive, she is not fully engaged with my questioning. I discussed treatment options with patient, and although she denies having any suicidal thoughts right now, she still remains quite depressed and reports hopelessness. She is unsure of whether she is interested in a voluntary psychiatric admission, although this was strongly recommended . She is coherent hallucinations. She denies any thoughts of harm her . She denies being in an abusive relationship in this respect. Delusions were not elicited. Her insight is fair, judgment is poor. VITAL SIGNS: Reviewed by this provider. LABORATORY DATA: Reviewed by this provider. RELEVANT PSYCHIATRIC MEDICATIONS: Include Ativan 1 mg IV every 6 hours p.r.n. which patient did not receive any doses of. PSYCHIATRIC HISTORY: Patient reports that she denies any prior psychiatric hospitalizations or prior suicide attempt except for her overdose of Viibryd 12 tablets. Patient has been in treatment with her psychiatrist, Dr. Diaz, most recent followup was last month. Dr. Diaz started Viibryd on her 20 mg daily a month ago and appeared to be improving as well as Ritalin 10 mg p.o. b.i.d. for her depression and poor focus, this appeared to be improving her mood as though he discontinued the Reglan two weeks ago. Patient reports that her mood started worsening about a week ago. She is not on any other medication trials except for Xanax. SOCIAL HISTORY: Patient has been with her Ana for the last year; however, has been together with him for 26 years. She lives with her and reports that he started drinking more recently and got a DUI this last Sunday. He has been unreliable and difficult to live with because of this recently, and this has been a huge stressor for her. Patient has a 35-year-old daughter. Patient is on disability because she has Crohn's. Patient denies any drugs or alcohol problems in the past. IMPRESSION: Major depressive disorder, anxiety disorder. RECOMMENDATIONS: At this time, I discussed the benefits of starting medication such as Prozac 10 mg daily for patient's depression and anxiety. I reviewed possible side effects, therapeutic latency, and indications for this medication as well as dosing ranges. Patient is in agreement to initiate this medication for her depression and anxiety. I have also started Klonopin 0.5 mg at bedtime to help patient with anxiety. I spoke with Dr. Rae regarding whether the patient is psychiatrically cleared and she is not psychiatrically cleared at this time. I reviewed patient's benefits of inpatient voluntary psychiatric admission and patient is unsure whether she wants to sign in for voluntary treatment though this provider strongly urges this transfer. If the patient is unwilling to sign in voluntarily to our unit, [facility] should be called to screen for involuntary commitment as the patient continues to present as a danger to herself. Psychiatry will continue to follow up with patient. Next followup will be tomorrow, , 06/28/2017. Reinier Mccauley MD [facility] # [id number]
== END 2017-06-27 19:34 ==
LOC: ED 21:53 → INTOOBSV 06-27 00:07 → ERH 06-27 00:07 → CCU 06-27 02:55
PROVIDERS: ADMIT Internal Medicine; ATTEND Internal Medicine
DX: T43.291A Poisoning by other antidepressants, accidental (unintentional), initial encounter (principal); F32.9 Major depressive disorder, single episode, unspecified; F41.9 Anxiety disorder, unspecified; K50.90 Crohn's disease, unspecified, without complications; I10 Essential (primary) hypertension; D64.9 Anemia, unspecified; G93.2 Benign intracranial hypertension; M19.90 Unspecified osteoarthritis, unspecified site; Y92.009 Unspecified place in unspecified non-institutional (private) residence as the place of occurrence of the external cause
CPT/HCPCS: 80053; 80164; 81001; 82550; 83735; 84100; 85025; 87081; 87086; 93005; 96374; 99285; C9113; G0378; G0480; J2060; J7040

== ENCOUNTER 2017-06-27 18:52 | Inpatient (IN) | payer MEDICARE, BC ==
[2017-06-27] MEDS ORDERED: Alum-Mag Hydrox-Simethicone Susp (30 mL) PO PRN (22:12)
[2017-06-27] MEDS ORDERED: Magnesium Hydroxide Susp 30 ml UD PO PRN (22:12)
[2017-06-27] MEDS: Home Med 1 UNIT OU SCH (23:15)
--- NOTE | 2017-06-28 02:13 | PCM.BM ---
<RockyPete - Last Filed: 06/28/17 02:10> Treatment Plan Problems - Problems identified on initial assessmt Ineffective Coping Date Initiated: 06/27/17 Time Initiated: 20:00 Assessment reference: NA Status: Active Priority: 1 Feelngs of Worthlessness Date Initiated: 06/27/17 Time Initiated: 20:00 Assessment reference: NA Status: Active Priority: 3 Nutrition More Than Body Requirements Date Initiated: 06/27/17 Time Initiated: 20:00 Assessment reference: NA Status: Active Priority: 4 Hopelessness/Helpessness Date Initiated: 06/27/17 Time Initiated: 20:00 Assessment reference: NA Status: Active Priority: 2 Treatment assets and liabiliti Patient Assests: good support system, negotiates basic needs, cognitively intact , good interpersonal skills Patient Liabilities: physical pain, medical problems - Milieu Protocol Maintain good personal hygiene: daily Encourage regular showers, every shift Remind patient to perform daily oral care, every shift Assist patient to perform ADL's Maintain personal safety: every shift Educate patient to report safety concerns to staff, every shift Monitor environment for contraband/sharps Medication safety: Monitor for expected outcome, potential side effects: every shift, Assess barriers to learning: every shift, Assess readiness for medication education: every shift Family Contact Family involvement: Family/SO is involved Family contact: Patient agrees to contact - Goals for Treatment Patient goals for treatment: treatment of depression Discharge/Continuing Care - Education Needs Education Needs: Family Medication, Family Diagnosis/Disease Process, Family Coping Skills, Family Nutrition, Patient Medication, Patient Diagnosis/Disease Process, Patient Coping Skills, Patient Community resources, Patient Activities of Daily Living, Patient Pain, Patient Nutrition, Patient Health Practices/ Safety, Patient Personal Hygiene/Grooming, Patient Aftercare Safety Plan - Discharge Discharge Criteria: Tolerates medication w/o severe side effects, Free of Suicidal thoughts, Ability to care for self <Emelia Vega - Last Filed: 06/28/17 12:50> - Diagnosis (1) MDD (major depressive disorder) Status: Acute Interventions: 06/28/17 12:51 Psychoeducation Psychopharmacology/adjustment of medications as needed/ monitoring possible side effects Evaluate pt on daily basis Compliance with medications and follow up appointments Suicide and homicide risk assessment and prevention Relapse prevention Reduction of symptoms Improve functional status Family involvement As outpatient: cognitive behavioral therapy <Reinier Mccauley - Last Filed: 06/29/17 15:00> - Diagnosis (1) MDD (major depressive disorder) Status: Acute Interventions: 06/28/17 12:51 Psychoeducation Psychopharmacology/adjustment of medications as needed/ monitoring possible side effects Evaluate pt on daily basis Compliance with medications and follow up appointments Suicide and homicide risk assessment and prevention Relapse prevention Reduction of symptoms Improve functional status Family involvement As outpatient: cognitive behavioral therapy
[2017-06-28 04:31] VITALS: BMI 38.8
[2017-06-28 07:31] LABS: GLUCOSE,FASTING 86 mg/dL (65-110); HDL CHOLESTEROL 62 mg/dL (29-60)
[2017-06-28 07:41] LABS: LDL CHOLESTEROL 78 mg/dL (0-129)
[2017-06-28] MEDS: Divalproex 250 mg DR (BID formulation) PO SCH (09:08)
[2017-06-28] MEDS: Metoprolol Succinate 25 mg XL Tab PO SCH (09:11)
[2017-06-28] MEDS: Pantoprazole 40 mg EC Tab PO SCH (09:18)
[2017-06-28] MEDS: acetaZOLAMIDE 500 mg SR Cap PO SCH ×2 (10:15→17:53)
--- NOTE | 2017-06-28 14:00 | PCM.PSYCH ---
Initial Psychiatric Evaluation - Initial Psychiatric Evaluation Type of Admission: Voluntary Legal Status: Capacity (patient has capacity to sign consent for treatment) Chief Complaint (in patient's own words): "I told by daughter, it was not a big deal, but she was keeping yelling and yelling at me' Patient's Reaction to Hospitalization: patient was transferred from the medical side we're she was admitted status post intentional overdose on medications, patient was evaluated by , patient was found to be depressed, hopeless, helpless, required further hospitalization for depressive symptoms. History of Present Illness and Precipitating Events: shortly patient is 57 year old -Vietnamese female, self reported history of depression, patient denied history of psychiatric admissions, denied history of suicidal attempts, patient was admitted on the medical side initially status post intentional overdose on medications, patient was stable from the medical standpoint, was transferred to the psychiatric inpatient unit yesterday uneventfully. Patient requires further evaluation and stabilization, medication titration. Patient was seen in her room with medical student, patient presented with acceptable personal hygiene but patient appears to be careless about her appearance no makeup on, the currently wig which seems to be messy, good ADLs. patient appears to be alert and oriented, pleasant corporative, initially patient was. Tearful but later on patient was able to smile a few times. Patient reported that she suffered from depression for "years", patient reported that she never been admitted to psychiatric inpatient unit before, patient was seen by Dr. Diaz in the community prescribed 3 delirium as well as Xanax. A patient reported being compliant with the medications, patient said on Prozac she had suicidal ideations with a plan to walk into the traffic, that's why ritalin was prescribed. pt said she became more depressed and hopeless, patient said that she had no energy, "I was sleeping hold a long", after treated in and Xanax was prescribed "I feel much better, I felt like myself again". pt reported that yesterday she had an argument with her daughter, patient said that "my daughter was screaming and yelling, she said that I made her feel guilty", patient reported that she try to distract herself from that by watching TV, but she couldn't do so, then patient went to her room started to overdose on her medical medications, patient has been to walk into the room and found her taking pills, call 911. patient said that she feels "happy to be alive ", patient denied that she wanted to kill herself, patient reported that her intent was "to relax, I want everybody to shut up". Patient said for past few months she didn't think to end up her life, patient denied previous suicidal attempts, denied thoughts of harming herself or others at present moment of interview. Patient denied that she feels anxious, patient denied history of being abused. Patient denied hearing voices denied seeing things denied paranoid ideation. Patient denied using any drugs, denied drinking alcohol, history of smoking, but not currently. No manic symptoms elicited. medical h/o: HTN, pseudutumor cerebri, pt was seen by neurologist , HTN, obesity, crohn's disease, glaucoma, s/p overdose on Viibryd, pt lost about 8Lb since March. family h/o: pt's Brother suffers from schizophrenia, present moment "I don't know where he is", patient reported her brother with mental illness try to commit suicide in the past. pt was seen by medical team today. Lab Results 06/28/17 07:00: TSH 3rd Generation 1.40 06/28/17 07:00: Fasting Glucose 86, Triglycerides 142, Cholesterol 179, LDL Cholesterol Direct 78, HDL Cholesterol 62 H Vital Signs Temp Pulse Resp BP 06/28/17 09:11 75 115/66 06/28/17 09:09 75 115/66 06/28/17 06:50 98.3 F 75 20 115/66 06/27/17 22:00 17 Patient's pharmacy was [place] [address] Crestor 200 mg daily Metoprolol XL 25 mg daily Verapamil 80 mg 3 times a day Acetetazolamide SL 500mg po bid Nortriptyline 25 mg at the nighttime will d/c Depakote 500 mg twice a day will continue Topamax 100 mg at the nighttime will continue Current Medications: Active Medications Generic Name Dose Route Start Last Admin Trade Name Freq PRN Reason Stop Dose Admin Acetaminophen 650 mg 06/27/17 22:12 Tylenol 325mg Tab PO Q6H PRN Pain, moderate (4-7) Acetazolamide 500 mg 06/28/17 08:00 06/28/17 10:15 Diamox Sequels 500 Mg Sr Cap PO 500 mg BID EMELYN Administration Al Hydrox/Mg Hydrox/Simethicone 30 ml 06/27/17 22:12 Maalox Plus 30 Ml PO DAILY PRN Indigestion / Heartburn Atorvastatin Calcium 10 mg 06/28/17 17:00 Lipitor PO DIN EMELYN Clonazepam 0.5 mg 06/27/17 22:30 06/27/17 23:14 Klonopin PO 0.5 mg HS EMELYN Administration Protocol Divalproex Sodium 500 mg 06/28/17 08:00 06/28/17 09:[address] (*Bid*) PO 500 mg DAILY EMELYN Administration Protocol Fluoxetine HCl 10 mg 06/28/17 08:00 06/28/17 09:10 Prozac PO 10 mg DAILY EMELYN Administration Home Med 0 unit 06/27/17 22:30 06/27/17 23:15 Home Med OU 1 unit HS EMELYN Administration Magnesium Hydroxide 30 ml 06/27/17 22:12 Milk Of Magnesia PO DAILY PRN Constipation Metoprolol Succinate 25 mg 06/28/17 10:00 06/28/17 09:11 Toprol Xl PO 25 mg QAM EMELYN Administration Pantoprazole Sodium 40 mg 06/28/17 06:00 06/28/17 09:18 Protonix Ec Tab PO 40 mg 0600 EMELYN Administration Topiramate 100 mg 06/28/17 08:00 06/28/17 09:10 Topamax PO 100 mg DAILY EMELYN Administration Protocol Verapamil HCl 80 mg 06/28/17 08:00 06/28/17 09:09 Calan Tab PO 80 mg TID EMELYN Administration Zaleplon 5 mg 06/27/17 22:29 06/27/17 23:14 Sonata PO 5 mg HS PRN Administration Insomnia Past Psychiatric History - Past Psychiatric History Previous Treatment History: None Prior Professional Help: see HPI Prior Psychiatric Treatment: see HPI At what hospital: see HPI Duration: see HPI Nature of Treatment: see HPI Explanation of prior treatment: see HPI History of Abuse: see HPI History of ETOH/Drug Use: see HPI History of Family Illness: see HPI Pertinent Medical Hx (Current Medical&Sleep Prob, Allergies): Allergies Allergy/AdvReac Type Severity Reaction Status Date / Time No Known Allergies Allergy Verified 06/28/17 04:27 Divalproex [Depakote DR] 500 mg PO DAILY 05/11/15 Metoprolol Succinate [Toprol XL] 25 mg PO QAM 05/11/15 Topiramate [Topamax] 100 mg PO DAILY 05/11/15 acetaZOLAMIDE [Diamox Sequels 500 mg SR Cap] 500 mg PO BID 05/11/15 Pantoprazole [Protonix EC Tab] 40 mg PO DAILY 06/26/17 Verapamil [Calan Tab] 80 mg PO TID 06/26/17 Acetaminophen [Tylenol 325mg tab] 650 mg PO Q4H PRN tab 06/27/17 Atorvastatin [Lipitor] 10 mg PO DIN #30 tab 06/27/17 FLUoxetine [Prozac] 10 mg PO DAILY cap 06/27/17 LORazepam [Ativan] 1 mg IVP Q6H PRN vial 06/27/17 clonazePAM [Klonopin] 0.5 mg PO HS tab 06/27/17 Review of Systems - Review of Systems Systems not reviewed;Unavailable: Acuity of Condition - EENT Eyes: As Per HPI Ears: As Per HPI Nose/Mouth/Throat: As Per HPI - Breasts Breasts: As Per HPI - Cardiovascular Cardiovascular: As Per HPI - Respiratory Respiratory: As Per HPI - Gastrointestinal Gastrointestinal: As Per HPI - Genitourinary Genitourinary: As Per HPI - Reproductive: Female Reproductive:Female: As Per HPI - Menstruation Menstruation: As Per HPI - Musculoskeletal Musculoskeletal: As Par HPI - Integumentary Integumentary: As Per HPI - Neurological Neurological: As Per HPI - Psychiatric Psychiatric: As Per HPI - Endocrine Endocrine: As Per HPI - Hematologic/Lymphatic Hematologic: As Per HPI Mental Status Examination - Personal Presentation Personal Presentation: Looks older than stated age - Affect Affect: Constricted (reactive, mood congruent) - Motor Activity Motor Activity: Calm - Reliability in Providing Information Reliability in Providing Information: Fair - Speech Speech: Organized - Mood Mood: Depressed - Formal Thought Process Formal Thought Process: No Impairment - Obsessions/Compulsions Obsessions: None Compulsions: None - Cognitive Functions Orientation: Person, Place Sensorium: Alert Attention/Concentration: Easily distracted Abstract Thinking: [place] Estimate of Intelligence: Average Judgement: Intact, as evidence by: Insight regarding need for hospitalization - Risk Risk: Self-mutilation, Diminished functioning - Strength & Assets Inventory Strength & Assets Inventory: Intelligence, Family support, Cooperative - Limitations Limitations: Other (patient has multiple medical issues) DSM 5 DX - DSM 5 DSM 5 Diagnosis: rule out major depressive disorder Rule out mood disorder due to general medical condition - Recommended/Plan of Treatment Treatment Recommendations and Plan of Treatment: milieu, structure, supportive therapy Divalproex [Depakote DR] 500 mg PO twice a day will be continued most likely this medication prescribed for migraine headaches Metoprolol Succinate [Toprol XL] 25 mg PO QAM will be continued Topiramate [Topamax] 100 mg PO at night will be continued acetaZOLAMIDE [Diamox Sequels 500 mg SR Cap] 500 mg PO BID will be continued Pantoprazole [Protonix EC Tab] 40 mg PO DAILY will be continued Verapamil [Calan Tab] 80 mg PO TID will continue Atorvastatin [Lipitor] 10 mg PO DIN we'll continue FLUoxetine [Prozac] will be discontinued because patient reported h/o suicidal urge on that medication patient was seen by medical team, consult appreciated Wellbutrin 75 mg daily for major depressive disorder Sonata as needed for insomnia social security specialist evaluation Family involvement Follow up on labs Will monitor closely Pt was educated about risk/benefits and alternatives of medications, coping strategies (safety plan, suicide prevention), relapse prevention, importance of follow up with psychiatrist and therapist, stay away from drugs/alcohol/smoking Projected ELOS: 7days Prognosis: fair Discharge Plan and Discharge Criteria: Pt will be not depressed or manic, will be more hopeful, will be not psychotic or anxious, will be not having thoughts of harming self or others, will be tolerating medications well, will not have major side effects, will be able to function, will not pose threat to self or others. - Smoking Cessation Smoking Cessation Initiated: No Reason for not providing: pt denied smoking
--- NOTE | 2017-06-28 16:49 | CP.PCM.CON ---
<Mateo Andersonrafiq - Last Filed: 06/28/17 16:20> History of Present Illness - History of Present Illness History of Present Illness: Medicine consult note for Dr. Rae - Mateo Anderson DO, PGY - 1 Reason For Consult: Medical management HPI: 57 year old female, whose past medical history includes depression, Crohn's disease, pseudotumor cerebri, hypertension, degenerative joint disease, and anemia, who presents to the Emergency department brought in by EMS accompanied by family status post overdose. Patient was lethargic and sleepy, and unable to answer question, history provided by family at bedside and ED. stated that patient told him she took 12 tablets of Viibryd on her night of admission. noted that she had been depressed for a while and had been seen by a psychiatrist in the past. stated that they had a conversation earlier in the evening and she went to lay down, a few hours later patient told her she took 12 tablets of viibryd. Per ED on arrival, patient was mildly- agitated and non-verbal. Patient was admitted to the ICU overnight and was seen by the medical team. Patient became alert and oriented X 4 over the course of the day and was found to be stable. Poison control cleared the patient, psych admitted patient to psychiatry. We have been consulted to manage patient's chronic medical problems. Patient currently denies any symptoms. She admitted to her past medical history but denies any current symptoms. Patient denies fevers, chills, nausea , vomiting, diarrhea, chest pain, and shortness of breath. Medical History: Depression, Crohn's disease, pseudotumor cerebri, Hypertension, Degenerative joint disease, and Anemia Surgical History: Bilateral knee, Bilateral wrist Social History: Light smoker, Social alcohol use, no illicit drug use Family History: Heart disease Allergy: NKDA Medications: Reviewed, see MAR Review of Systems: 12 point ROS obtained and negative except as per HPI Past Patient History - Infectious Disease Hx of Infectious Diseases: None - Tetanus Immunizations Tetanus Immunization: Unknown - Past Social History Smoking Status: Former Smoker - CARDIAC Hx Cardiac Disorders: Yes Hx Hypertension: Yes - PULMONARY Hx Respiratory Disorders: No - NEUROLOGICAL Hx Neurological Disorder: Yes Hx Migraine: Yes - HEENT Hx HEENT Problems: Yes Hx Cataracts: Yes (left eye) Hx Glaucoma: Yes (both eyes) Other/Comment: pseudotumor left eye removed - RENAL Hx Chronic Kidney Disease: No - ENDOCRINE/METABOLIC Hx Endocrine Disorders: Yes Other/Comment: thyroid nodules - HEMATOLOGICAL/ONCOLOGICAL Hx Blood Disorders: No - INTEGUMENTARY Hx Dermatological Problems: Yes Hx Eczema: Yes - MUSCULOSKELETAL/RHEUMATOLOGICAL Hx Musculoskeletal Disorders: Yes - GASTROINTESTINAL Hx Gastrointestinal Disorders: Yes Hx Crohn's Disease: Yes - GENITOURINARY/GYNECOLOGICAL Hx Genitourinary Disorders: No - PSYCHIATRIC Hx Emotional Abuse: No Hx Physical Abuse: No Hx Sexual Abuse: No Hx Substance Use: No - SURGICAL HISTORY Hx Orthopedic Surgery: Yes (L KNEE, R KNEE, B/L WRISTS) - ANESTHESIA Hx Anesthesia: Yes Hx Anesthesia Reactions: No Hx Malignant Hyperthermia: No Meds Allergies/Adverse Reactions: Allergies Allergy/AdvReac Type Severity Reaction Status Date / Time No Known Allergies Allergy Verified 06/28/17 04:27 - Medications Medications: Current Medications Acetaminophen (Tylenol 325mg Tab) 650 mg PO Q6H PRN PRN Reason: Pain, moderate (4-7) Acetazolamide (Diamox Sequels 500 Mg Sr Cap) 500 mg PO BID [facility] Last Admin: 06/28/17 10:15 Dose: 500 mg Al Hydrox/Mg Hydrox/Simethicone (Maalox Plus 30 Ml) 30 ml PO DAILY PRN PRN Reason: Indigestion / Heartburn Atorvastatin Calcium (Lipitor) 10 mg PO DIN EMELYN Bupropion HCl (Wellbutrin) 75 mg PO DAILY [facility] Last Admin: 06/28/17 14:11 Dose: 75 mg Clonazepam (Klonopin) 0.5 mg PO HS [facility] PRN Reason: Protocol Last Admin: 06/27/17 23:14 Dose: 0.5 mg Divalproex Sodium (Depakote Dr (*Bid*)) 500 mg PO DAILY [facility] PRN Reason: Protocol Last Admin: 06/28/17 09:08 Dose: 500 mg Home Med (Home Med) 0 unit OU HS [facility] Last Admin: 06/27/17 23:15 Dose: 1 unit Magnesium Hydroxide (Milk Of Magnesia) 30 ml PO DAILY PRN PRN Reason: Constipation Metoprolol Succinate (Toprol Xl) 25 mg PO QAM [facility] Last Admin: 06/28/17 09:11 Dose: 25 mg Pantoprazole Sodium (Protonix Ec Tab) 40 mg PO 0600 [facility] Last Admin: 06/28/17 09:18 Dose: 40 mg Topiramate (Topamax) 100 mg PO HS EMELYN PRN Reason: Protocol Verapamil HCl (Calan Tab) 80 mg PO TID EMELYN Last Admin: 06/28/17 14:08 Dose: 80 mg Zaleplon (Sonata) 5 mg PO HS PRN PRN Reason: Insomnia Last Admin: 06/27/17 23:14 Dose: 5 mg Physical Exam - Constitutional Appears: Well - Head Exam Head Exam: ATRAUMATIC, NORMAL INSPECTION, NORMOCEPHALIC - Eye Exam Eye Exam: EOMI, Normal appearance, PERRL Pupil Exam: NORMAL ACCOMODATION, PERRL - ENT Exam ENT Exam: Mucous Membranes Moist, Normal Exam - Neck Exam Neck exam: Positive for: Normal Inspection - Respiratory Exam Respiratory Exam: Clear to Auscultation Bilateral, NORMAL BREATHING PATTERN - Cardiovascular Exam Cardiovascular Exam: REGULAR RHYTHM - GI/Abdominal Exam GI & Abdominal Exam: Normal Bowel Sounds, Soft. absent: Tenderness - Extremities Exam Extremities exam: Positive for: normal inspection - Back Exam Back exam: NORMAL INSPECTION - Neurological Exam Neurological exam: Alert, CN II-XII Intact, Normal Gait, Oriented x3, Reflexes Normal - Psychiatric Exam Psychiatric exam: Normal Affect, Normal Mood - Skin Skin Exam: Dry, Intact, Normal Color, Warm Results - Vital Signs Recent Vital Signs: Last Vital Signs Temp 98.3 F 06/28/17 06:50 Pulse 75 06/28/17 14:08 Resp 20 06/28/17 06:50 BP 116/68 06/28/17 14:08 Pulse Ox - Labs Labs: Laboratory Results - last 24 hr 06/28/17 06/28/17 07:00 07:00 Fasting Glucose 86 Triglycerides 142 Cholesterol 179 LDL Cholesterol Direct 78 HDL Cholesterol 62 H TSH 3rd Generation 1.40 Assessment & Plan - Assessment and Plan (Free Text) Assessment: 57 year old female, whose past medical history includes depression, Crohn's disease, pseudotumor cerebri, hypertension, degenerative joint disease, and anemia presents to psychiatry. We are consulted for medical management of chronic medical problems. History of Pseudotumor Cerebri - Continue home Depakote, home Acetazolamide - Continue Topamax Hypertension - Continue home Verapamil TID, home Toprol XL - MOnitor blood pressure to make sure pressure does not drop History of Degenerative Joint Disease - Continue Acetaminophen for pain Crohn's Disease - No home meds History of Anemia - Patient's Hemoglobin stable right now - Re-consult if patient becomes symptomatic History of Depression - Per psych Dispo: At this point, we will sign off. Please re-consult as necessary <Essie Rae - Last Filed: 06/29/17 13:47> Meds - Medications Medications: Current Medications Acetaminophen (Tylenol 325mg Tab) 650 mg PO Q6H PRN PRN Reason: Pain, moderate (4-7) Last Admin: 06/29/17 11:57 Dose: 650 mg Acetazolamide (Diamox Sequels 500 Mg Sr Cap) 500 mg PO BID [facility] Last Admin: 06/29/17 09:41 Dose: 500 mg Al Hydrox/Mg Hydrox/Simethicone (Maalox Plus 30 Ml) 30 ml PO DAILY PRN PRN Reason: Indigestion / Heartburn Atorvastatin Calcium (Lipitor) 10 mg PO DIN [facility] Last Admin: 06/28/17 17:53 Dose: 10 mg Bupropion HCl (Wellbutrin) 75 mg PO DAILY [facility] Last Admin: 06/29/17 09:42 Dose: 75 mg Clonazepam (Klonopin) 0.5 mg PO [facility] PRN Reason: Protocol Last Admin: 06/28/17 21:42 Dose: 0.5 mg Divalproex Sodium (Depakote Dr (*Bid*)) 500 mg PO DAILY [facility] PRN Reason: Protocol Last Admin: 06/29/17 09:42 Dose: 500 mg Home Med (Home Med) 0 unit OU HS [facility] Last Admin: 06/28/17 21:43 Dose: 1 unit Home Med (Home Med) 1 unit SC Th@2200 [facility] Last Admin: 06/28/17 21:42 Dose: 1 unit Magnesium Hydroxide (Milk Of Magnesia) 30 ml PO DAILY PRN PRN Reason: Constipation Metoprolol Succinate (Toprol Xl) 25 mg PO QAM [facility] Last Admin: 06/29/17 09:41 Dose: 25 mg Pantoprazole Sodium (Protonix Ec Tab) 40 mg PO 0600 [facility] Last Admin: 06/29/17 06:49 Dose: 40 mg Topiramate (Topamax) 100 mg PO [facility] PRN Reason: Protocol Verapamil HCl (Calan Tab) 80 mg PO TID [facility] Last Admin: 06/29/17 09:42 Dose: 80 mg Zaleplon (Sonata) 5 mg PO HS PRN PRN Reason: Insomnia Last Admin: 06/28/17 21:47 Dose: 5 mg Results - Vital Signs Recent Vital Signs: Last Vital Signs Temp 98 F 06/29/17 06:16 Pulse 65 06/29/17 09:42 Resp 20 06/29/17 06:16 BP 100/66 06/29/17 09:42 Pulse Ox - Labs Result Diagrams: 06/29/17 07:00 06/29/17 07:00 Labs: Laboratory Results - last 24 hr 06/28/17 06/29/17 06/29/17 07:00 07:00 07:00 WBC 5.9 D RBC 4.07 Hgb 12.4 Hct 39.0 MCV 95.8 MCH 30.5 MCHC 31.8 RDW 14.8 H Plt Count 223 MPV 11.1 H Sodium 144 Potassium 3.7 Chloride 111 H Carbon Dioxide 22 Anion Gap 14 BUN 14 Creatinine 1.1 Est GFR ( Amer) > 60 Est GFR (Non-Af Amer) 51 Random Glucose 97 Calcium 9.5 Total Bilirubin 0.3 AST 26 ALT 27 Alkaline Phosphatase 75 Total Protein 7.0 Albumin 3.7 Globulin 3.2 Albumin/Globulin Ratio 1.1 RPR Nonreactive Attending/Attestation - Attestation I have personally seen and examined this patient.: Yes I have fully participated in the care of the patient.: Yes I have reviewed all pertinent clinical information: Yes Notes (Text): 06/29/17 13:43 Attending note; Patient seen and examined with the resident in psychiatric floor. Patient is a 57 year old female, whose past medical history includes depression , Crohn's disease, pseudotumor cerebri, hypertension, degenerative joint disease , and anemia, who presents to the Emergency department brought in by EMS accompanied by family status post overdose. Patient had an intentional overdose of antidepressent Vibryid. Monitored in ICU and transferred to the psychiatric floor yesterday. Labs stable. EKG normal. Patient is currently alert, awake and oriented. Still with flat affect. Continue treatment per psychiatry. Hypertension; continue medications. Monitor closely. Patient is medically stable for now. Please reconsult as needed. Upon discharge the patient will follow-up with PMD Dr. Fishman.
[2017-06-28] MEDS ORDERED: HUMIRA 40 MG SC SCH ×2 (21:00→22:00)
[2017-06-28] MEDS: Home Med 1 UNIT OU SCH (21:43)
[2017-06-29] MEDS: Pantoprazole 40 mg EC Tab PO SCH (06:49)
[2017-06-29 07:28] LABS: HEMOGLOBIN 12.4 g/dL (12.0-16.0); MEAN CELL VOLUME 95.8 fl (80.0-105.0); MEAN CORPUSCULAR HEMOGLOBIN 30.5 pg (25.0-35.0); MEAN CORPUSCULAR HGB CONC 31.8 g/dl (31.0-37.0); MEAN PLATELET VOLUME 11.1 fl (7.0-11.0); RBC 4.07 10^6/uL (3.5-6.1); RED CELL DISTRIBUTION WIDTH 14.8 % (11.5-14.5); WHITE BLOOD COUNT 5.9 10^3/ul (4.5-11.0)
[2017-06-29 07:57] LABS: ALB/GLOB RATIO 1.1 (1.1-1.8); ALBUMIN 3.7 g/dL (3.0-4.8); ALT/SGPT 27 U/L (7-56); AST/SGOT 26 U/L (14-36); BLOOD UREA NITROGEN 14 mg/dL (7-21); CALCIUM 9.5 mg/dL (8.4-10.5); GFR AFRICAN-AMERICAN > 60; GFR NON-AFRICAN AMERICAN 51
[2017-06-29] MEDS: acetaZOLAMIDE 500 mg SR Cap PO SCH ×2 (09:41→17:27)
[2017-06-29] MEDS: Metoprolol Succinate 25 mg XL Tab PO SCH (09:41)
[2017-06-29] MEDS: Divalproex 250 mg DR (BID formulation) PO SCH (09:42)
--- NOTE | 2017-06-29 11:07 | PCM.PYCHPN ---
Psychiatric Progress Note - Psychiatric Progress Note Patient seen today, length of contact: 25 min Problems Identified/Issues Discussed: I reviewed assessment and recent notes. Patient is a 57 year old - [place]ian female, psychiatric history of depression, no previous history of psychiatric admissions who was admitted on the medical side status post intentional overdose on her antidepressant Viibryd x12 tablets. Patient was seen by this provider for a psychiatric evaluation x2 days ago and subsequently transferred to the psychiatric inpatient for stabilization. I met with patient at bedside as well as during treatment team meeting. Patient continues to be depressed and demonstrate constricted affect. Her grooming is fair and she is well oriented to month, year and circumstances. Tolerating medications thus far however feels that Wellbutrin may be causing sedation during the day. Her sleep was restless last night and she complains of headache. She continues to deny any perceptual disturbance. Her thought process remains clear and coherent. Responses are relevant to questioning. Staff notes indicate that patient appears withdrawn and isolative on the unit. She remains mostly in her room but does attend groups. She has been calm and cooperative. There were no behavioral issues overnight. Diagnostic Results: rule out major depressive disorder Rule out mood disorder due to general medical condition Mental Status Examination - Cognitive Function Orientation: Person, Place - Mood Mood: Depressed - Affect Affect: Constricted (reactive, mood congruent) - Formal Thought Process Formal Thought Process: No Impairment Goal/Treatment Plan - Goal/Treatment Plan Progress Toward Problem(s) and Goals/Treatment Plan: c/w current tx and plan Vitals reviewed and noted below: 06/29/17 06/29/17 06/29/17 06:16 09:41 09:42 Temperature 98 F Pulse Rate 65 65 65 Respiratory 20 Rate Blood Pressure 100/56 L 100/56 L 100/66 New Floor labs noted below: 06/29/17 06/29/17 07:00 07:00 WBC 5.9 D RBC 4.07 Hgb 12.4 Hct 39.0 MCV 95.8 MCH 30.5 MCHC 31.8 RDW 14.8 H Plt Count 223 MPV 11.1 H Sodium 144 Potassium 3.7 Chloride 111 H Carbon Dioxide 22 Anion Gap 14 BUN 14 Est GFR (Non-Af Amer) 51 Random Glucose 97 Calcium 9.5 Total Bilirubin 0.3 AST 26 ALT 27 Alkaline Phosphatase 75 Total Protein 7.0 Albumin 3.7 Globulin 3.2 Albumin/Globulin Ratio 1.1
[2017-06-29] MEDS: Home Med 1 UNIT OU SCH (21:08)
[2017-06-30] MEDS: Pantoprazole 40 mg EC Tab PO SCH (08:43)
[2017-06-30] MEDS: Divalproex 250 mg DR (BID formulation) PO SCH (08:43)
[2017-06-30] MEDS: acetaZOLAMIDE 500 mg SR Cap PO SCH ×2 (08:43→17:36)
[2017-06-30] MEDS: Metoprolol Succinate 25 mg XL Tab PO SCH (10:09)
--- NOTE | 2017-06-30 12:40 | PCM.PYCHPN ---
Psychiatric Progress Note - Psychiatric Progress Note Patient seen today, length of contact: 25 min Patient Chief Complaint: "I feel better than I look" Problems Identified/Issues Discussed: Patient is a 57 year old -Scottish female, psychiatric history of depression, no previous history of psychiatric admissions who was admitted on the medical side status post intentional overdose on her antidepressant Viibryd x12 tablets. Patient was seen by this provider for a psychiatric evaluation on the medical floor and subsequently transferred to the psychiatric inpatient for stabilization. I reviewed recent unit notes and met with patient at bedside this morning. Patient continues to be depressed however states that she "is doing better than I look". Grooming is good and she is well-oriented to month, year, location and circumstances. Her communication is more spontaneous and affect is more reactive though still constructed. She continues to deny any perceptual disturbance. Her thought process remains clear and coherent. Responses are relevant to questioning. Patient had a good family visit with her , Jeronimo yesterday. Patient indicates that her conflictual relationship with her daughter is also a large stressor in her life. Patient is tolerating her medications thus far and didn't experience any sedation yesterday during the day. She is willing to continue taking Wellbutrin. Her sleep was restless again last night. Headache has resolved. Staff notes indicate that patient appears withdrawn and isolative on the unit. Tearful yesterday and asked to speak to a crop or livestock tenant farmer who will be visiting this evening. Patient remains mostly in her room but does attend groups. She has been calm and cooperative. There were no behavioral issues overnight. Diagnostic Results: rule out major depressive disorder Rule out mood disorder due to general medical condition Medication Change: Yes (Changed depakote from 500 mg po daily to 500 mg po HS to help with restless) Medical Record Reviewed: Yes Mental Status Examination - Cognitive Function Orientation: Person, Place Attention: WNL Concentration: WNL Association: WNL - Mood Mood: Depressed ("I feel better than I look") - Affect Affect: Constricted (reactive, mood congruent) - Formal Thought Process Formal Thought Process: No Impairment - Suicidal Ideation Suicidal Ideation: No - Homicidal Ideation Homicidal Ideation: No Goal/Treatment Plan - Goal/Treatment Plan Progress Toward Problem(s) and Goals/Treatment Plan: * c/w current tx and plan * Changed depakote from 500 mg po daily to 500 mg po HS to help with restless sleep. * Appreciate f/u by Dr. Rae on 06/28/17~signed off * Vitals reviewed and noted below: 06/30/17 06/30/17 06/30/17 06:45 08:42 10:09 Temperature 98.1 F Pulse Rate 75 75 77 Respiratory 19 Rate Blood Pressure 117/70 117/70 120/74 * New Floor labs noted below: 06/29/17 06/29/17 07:00 07:00 WBC 5.9 D RBC 4.07 Hgb 12.4 Hct 39.0 MCV 95.8 MCH 30.5 MCHC 31.8 RDW 14.8 H Plt Count 223 MPV 11.1 H Sodium 144 Potassium 3.7 Chloride 111 H Carbon Dioxide 22 Anion Gap 14 BUN 14 Est GFR (Non-Af Amer) 51 Random Glucose 97 Calcium 9.5 Total Bilirubin 0.3 AST 26 ALT 27 Alkaline Phosphatase 75 Total Protein 7.0 Albumin 3.7 Globulin 3.2 Albumin/Globulin Ratio 1.1
[2017-06-30] MEDS: Home Med 1 UNIT OU SCH (21:52)
[2017-07-01] MEDS: Pantoprazole 40 mg EC Tab PO SCH (08:35)
[2017-07-01] MEDS: acetaZOLAMIDE 500 mg SR Cap PO SCH ×2 (08:36→17:12)
--- NOTE | 2017-07-01 09:05 | PCM.PYCHPN ---
Psychiatric Progress Note - Psychiatric Progress Note Patient seen today, length of contact: 25 min Patient Chief Complaint: "I feel better than I look" Problems Identified/Issues Discussed: Patient is a 57 year old -Haitian female, psychiatric history of depression, no previous history of psychiatric admissions who was admitted on the medical side status post intentional overdose on her antidepressant Viibryd x12 tablets. Patient was seen by this provider for a psychiatric evaluation in the ICU and subsequently transferred to the psychiatric inpatient for stabilization. I reviewed recent unit notes and met with patient again at bedside this morning. Patient reports she is doing better and learning not to let the little things get to me. Grooming is good and she is well oriented to month, year, location and circumstances. Her communication is more spontaneous and affect is more reactive though still constricted. She continues to deny any perceptual disturbance. Her thought process remains clear and coherent. Responses are relevant to questioning. Patient had a good family visit with her , Jeronimo on Sunday. Patient indicated that her conflictual relationship with her daughter is also a large stressor in her life. Patient is tolerating her medications thus far and didn't experience any daytime sedation over the weekend. She is willing to continue taking Wellbutrin. Sleep was restless last night and patient reports abdominal discomfort "I think my Crohns is acting up" and urinary frequency contributing to restless sleep. Reports that "topamax makes me pee" and that she usually takes it much earlier st 6pm. Patient is looking forward to discharge this week and hopes it will be on Sunday , tomorrow, Diagnostic Results: rule out major depressive disorder Rule out mood disorder due to general medical condition Medication Change: Yes (Changed timing of topamax 100 mg HS to 6 pm) Medical Record Reviewed: Yes Mental Status Examination - Cognitive Function Orientation: Person, Place, Situation Attention: WNL Concentration: WNL Association: WNL - Mood Mood: Depressed ("I feel better than I look") - Affect Affect: Constricted (reactive, mood congruent) - Speech Speech: Appropriate - Formal Thought Process Formal Thought Process: No Impairment - Suicidal Ideation Suicidal Ideation: No - Homicidal Ideation Homicidal Ideation: No Goal/Treatment Plan - Goal/Treatment Plan Progress Toward Problem(s) and Goals/Treatment Plan: * c/w current tx and plan * Changed depakote from 500 mg po daily to 500 mg po HS on 06/30/17 to help with restless sleep. * Appreciate f/u by Dr. Rae on 06/28/17~signed off. Will request another f/ u due to patient's recent complaints of abdominal pain * Vitals reviewed and noted below: 07/01/17 06:37 Temperature 98.3 F Pulse Rate 74 Respiratory 18 Rate Blood Pressure 125/73 * New Floor labs noted below: 06/29/17 06/29/17 07:00 07:00 WBC 5.9 D RBC 4.07 Hgb 12.4 Hct 39.0 MCV 95.8 MCH 30.5 MCHC 31.8 RDW 14.8 H Plt Count 223 MPV 11.1 H Sodium 144 Potassium 3.7 Chloride 111 H Carbon Dioxide 22 Anion Gap 14 BUN 14 Est GFR (Non-Af Amer) 51 Random Glucose 97 Calcium 9.5 Total Bilirubin 0.3 AST 26 ALT 27 Alkaline Phosphatase 75 Total Protein 7.0 Albumin 3.7 Globulin 3.2 Albumin/Globulin Ratio 1.1
[2017-07-01] MEDS: Metoprolol Succinate 25 mg XL Tab PO SCH (10:03)
--- NOTE | 2017-07-01 12:16 | CP.PCM.PN ---
<SamJason - Last Filed: 07/01/17 16:10> Subjective - Date & Time of Evaluation Date of Evaluation: 07/01/17 Time of Evaluation: 12:10 - Subjective Subjective: Medicine Progress Note: Patient seen and assessed at bedside in [facility]. Patient reports that she has been having LLQ pain since earlier this morning. She describes the pain as a sharp non-radiating pain that is constant and worsened with bowel movement. She reports that she has had three normal to loose to bowel movements today, which she reports as normal for her. She denies any fevers, chills, N/V, diarrhea, melena, hematochezia, changes in urine output, dysuria or hematuria. She reports that this is normally how her Crohn's flares start and that she is concerned that this could progress to become a flare. She sees Dr. Golden for her Crohn's management, whom she last saw in May, and that she takes weekly injections of Humira, which she reports being compliant with. Objective - Vital Signs/Intake and Output Vital Signs (last 24 hours): Temp Pulse Resp BP Pulse Ox 98.3 F 73 18 121/71 07/01/17 07:00 07/01/17 10:03 07/01/17 07:00 07/01/17 10:03 - Medications Medications: Current Medications Acetaminophen (Tylenol 325mg Tab) 650 mg PO Q6H PRN PRN Reason: Pain, moderate (4-7) Last Admin: 06/29/17 11:57 Dose: 650 mg Acetazolamide (Diamox Sequels 500 Mg Sr Cap) 500 mg PO BID [facility] Last Admin: 07/01/17 08:36 Dose: 500 mg Al Hydrox/Mg Hydrox/Simethicone (Maalox Plus 30 Ml) 30 ml PO DAILY PRN PRN Reason: Indigestion / Heartburn Atorvastatin Calcium (Lipitor) 10 mg PO DIN [facility] Last Admin: 06/30/17 17:38 Dose: 10 mg Bupropion HCl (Wellbutrin) 75 mg PO DAILY [facility] Last Admin: 07/01/17 08:36 Dose: 75 mg Clonazepam (Klonopin) 0.5 mg PO HS [facility] PRN Reason: Protocol Last Admin: 06/30/17 21:46 Dose: 0.5 mg Divalproex Sodium (Marc Dawson(*Bid*)) 500 mg PO HS [facility] PRN Reason: Protocol Home Med (Home Med) 0 unit OU HS [facility] Last Admin: 06/30/17 21:52 Dose: 1 unit Home Med (Home Med) 1 unit SC Th@2200 [facility] Last Admin: 06/28/17 21:42 Dose: 1 unit Magnesium Hydroxide (Milk Of Magnesia) 30 ml PO DAILY PRN PRN Reason: Constipation Metoprolol Succinate (Toprol Xl) 25 mg PO QAM [facility] Last Admin: 07/01/17 10:03 Dose: 25 mg Pantoprazole Sodium (Protonix Ec Tab) 40 mg PO 0600 [facility] Last Admin: 07/01/17 08:35 Dose: 40 mg Topiramate (Topamax) 100 mg PO 1800 [facility] PRN Reason: Protocol Verapamil HCl (Calan Tab) 80 mg PO TID [facility] Last Admin: 07/01/17 08:35 Dose: 80 mg Zaleplon (Sonata) 5 mg PO HS PRN PRN Reason: Insomnia Last Admin: 06/29/17 22:41 Dose: 5 mg - Labs Labs: 06/29/17 07:00 06/29/17 07:00 - Constitutional Appears: Non-toxic, No Acute Distress - Head Exam Head Exam: ATRAUMATIC, NORMOCEPHALIC - Eye Exam Eye Exam: EOMI, Normal appearance Pupil Exam: NORMAL ACCOMODATION, PERRL - ENT Exam ENT Exam: Mucous Membranes Moist, Normal Exam - Neck Exam Neck Exam: Full ROM, Normal Inspection. absent: Lymphadenopathy, Tenderness - Respiratory Exam Respiratory Exam: Clear to Ausculation Bilateral, NORMAL BREATHING PATTERN. absent: Accessory Muscle Use, Rales, Rhonchi, Wheezes - Cardiovascular Exam Cardiovascular Exam: REGULAR RHYTHM, RRR, +S1, +S2. absent: Bradycardia, Tachycardia, Clicks, Diastolic murmur, Gallop, Irregular Rhythm, JVD, Rubs, +S4 , Murmur - GI/Abdominal Exam GI & Abdominal Exam: Soft, Tenderness (LLQ/Suprapubic TTP), Normal Bowel Sounds. absent: Distended, Firm, Guarding, Rigid, Rebound - Extremities Exam Extremities Exam: Full ROM, Normal Capillary Refill, Normal Inspection. absent : Calf Tenderness, Joint Swelling, Pedal Edema, Tenderness - Back Exam Back Exam: NORMAL INSPECTION - Neurological Exam Neurological Exam: Alert, Awake, Oriented x3 - Psychiatric Exam Psychiatric exam: Normal Affect, Normal Mood - Skin Skin Exam: Dry, Intact, Normal Color, Warm Assessment and Plan - Assessment and Plan (Free Text) Assessment: Medicine team consulted for LLQ abdominal pain in patient with history of Crohn' s Disease Plan: 1. LLQ Abdominal Pain -Prednisone 25mg PO once -Continue Tylenol for pain control -FOBT pending -GI consulted, all recommendations appreciated Patient seen and case discussed with attending, Dr. Rae. <Essie Rae - Last Filed: 07/01/17 16:16> Objective - Vital Signs/Intake and Output Vital Signs (last 24 hours): Temp Pulse Resp BP Pulse Ox 98.3 F 59 L 18 137/75 07/01/17 07:00 07/01/17 16:13 07/01/17 07:00 07/01/17 16:13 - Medications Medications: Current Medications Acetaminophen (Tylenol 325mg Tab) 650 mg PO Q6H PRN PRN Reason: Pain, moderate (4-7) Last Admin: 06/29/17 11:57 Dose: 650 mg Acetazolamide (Diamox Sequels 500 Mg Sr Cap) 500 mg PO BID [facility] Last Admin: 07/01/17 08:36 Dose: 500 mg Al Hydrox/Mg Hydrox/Simethicone (Maalox Plus 30 Ml) 30 ml PO DAILY PRN PRN Reason: Indigestion / Heartburn Atorvastatin Calcium (Lipitor) 10 mg PO DIN [facility] Last Admin: 06/30/17 17:38 Dose: 10 mg Bupropion HCl (Wellbutrin) 75 mg PO DAILY [facility] Last Admin: 07/01/17 08:36 Dose: 75 mg Clonazepam (Klonopin) 0.5 mg PO [facility] PRN Reason: Protocol Last Admin: 06/30/17 21:46 Dose: 0.5 mg Divalproex Sodium (Depakote Dr(*Bid*)) 500 mg PO [facility] PRN Reason: Protocol Home Med (Home Med) 0 unit OU HS [facility] Last Admin: 06/30/17 21:52 Dose: 1 unit Home Med (Home Med) 1 unit SC Th@2200 [facility] Last Admin: 06/28/17 21:42 Dose: 1 unit Magnesium Hydroxide (Milk Of Magnesia) 30 ml PO DAILY PRN PRN Reason: Constipation Metoprolol Succinate (Toprol Xl) 25 mg PO QAM [facility] Last Admin: 07/01/17 10:03 Dose: 25 mg Pantoprazole Sodium (Protonix Ec Tab) 40 mg PO 0600 [facility] Last Admin: 07/01/17 08:35 Dose: 40 mg Prednisone (Prednisone Tab) 25 mg PO DAILY [facility] Last Admin: 07/01/17 15:31 Dose: 25 mg Topiramate (Topamax) 100 mg PO 1800 [facility] PRN Reason: Protocol Verapamil HCl (Calan Tab) 80 mg PO TID [facility] Last Admin: 07/01/17 13:07 Dose: 80 mg Zaleplon (Sonata) 5 mg PO HS PRN PRN Reason: Insomnia Last Admin: 06/29/17 22:41 Dose: 5 mg - Labs Labs: 06/29/17 07:00 06/29/17 07:00 Attending/Attestation - Attestation I have personally seen and examined this patient.: Yes I have fully participated in the care of the patient.: Yes I have reviewed all pertinent clinical information, including history, physical exam and plan: Yes Notes (Text): 07/01/17 16:14 Attending note; Patient seen and examined with the resident in psychiatric floor. Patient is complaining of abdominal pain mostly in the lower quadrant this morning. No hematochezia. Patient has a history of Crohn's disease takes Humira injections. Patient also gets Crohn's exacerbations with similar symptoms. Started on by mouth prednisone 25. Follow-up with GI Dr. Golden. Stool for occult blood ordered. Patient is currently alert, awake and oriented. Still with flat affect. Continue treatment per psychiatry. Hypertension; continue medications. Blood pressure is acceptable. Patient is medically stable for now. Monitor closely. Upon discharge the patient will follow-up with PMD Dr. Fishman.
[2017-07-01] MEDS: Home Med 1 UNIT OU SCH (21:38)
[2017-07-01] MEDS ORDERED: Divalproex 500 mg DR(BID formulation) PO SCH (22:00)
[2017-07-02] MEDS: Pantoprazole 40 mg EC Tab PO SCH (05:08)
[2017-07-02] MEDS: oxyCODONE 10 mg Immediate Release Tab PO PRN ×3 (05:25→20:41)
[2017-07-02] MEDS: acetaZOLAMIDE 500 mg SR Cap PO SCH ×2 (09:03→17:24)
[2017-07-02] MEDS: Metoprolol Succinate 25 mg XL Tab PO SCH (10:13)
--- NOTE | 2017-07-02 14:54 | PCM.PYCHPN ---
Psychiatric Progress Note - Psychiatric Progress Note Patient seen today, length of contact: 30min Patient Chief Complaint: "I am fine..." Problems Identified/Issues Discussed: Suicide/ homicide prevention, past psychiatric h/o, current psychiatric symptoms , medical problems, risk/benefits and alternatives of medications, medications compliance, coping strategies, substance abuse h/o, relapse prevention, importance of follow up with psychiatrist and therapist, discharge plan. Medical Problems: see HPI Diagnostic Results: 06/29/17 07:00 06/29/17 07:00 Lab Results 06/29/17 07:00: Sodium 144, Potassium 3.7, Chloride 111 H, Carbon Dioxide 22, Anion Gap 14, BUN 14, Creatinine 1.1, Est GFR ( Amer) > 60, Est GFR (Non- Af Amer) 51, Random Glucose 97, Calcium 9.5, Total Bilirubin 0.3, AST 26, ALT 27 , Alkaline Phosphatase 75, Total Protein 7.0, Albumin 3.7, Globulin 3.2, Albumin /Globulin Ratio 1.1 06/29/17 07:00: WBC 5.9 D, RBC 4.07, Hgb 12.4, Hct 39.0, MCV 95.8, MCH 30.5, MCHC 31.8, RDW 14.8 H, Plt Count 223, MPV 11.1 H 06/28/17 07:00: RPR Nonreactive 06/28/17 07:00: TSH 3rd Generation 1.40 06/28/17 07:00: Fasting Glucose 86, Triglycerides 142, Cholesterol 179, LDL Cholesterol Direct 78, HDL Cholesterol 62 H Vital Signs Temp Pulse Resp BP 07/02/17 12:42 78 141/94 H 07/02/17 10:13 66 131/66 07/02/17 09:04 66 131/88 07/02/17 07:21 98.4 F 66 20 131/68 07/01/17 17:11 66 134/75 07/01/17 16:13 59 L 137/75 07/01/17 13:07 60 147/84 07/01/17 10:03 73 121/71 07/01/17 08:35 74 125/73 07/01/17 07:00 98.3 F 74 18 125/73 07/01/17 06:37 98.3 F 74 18 125/73 06/30/17 17:36 60 129/64 06/30/17 15:00 97.6 F 60 20 129/60 06/30/17 13:19 73 114/68 06/30/17 10:09 77 120/74 06/30/17 08:42 75 117/70 06/30/17 06:45 98.1 F 75 19 117/70 06/29/17 17:27 87 137/74 06/29/17 15:00 87 137/74 06/29/17 14:00 61 145/86 06/29/17 09:42 65 100/66 06/29/17 09:41 65 100/56 L 06/29/17 07:00 98 F 65 20 100/56 L 06/29/17 06:16 98 F 65 20 100/56 L 06/28/17 17:53 70 142/83 06/28/17 15:00 70 142/83 06/28/17 14:08 75 116/68 06/28/17 09:11 75 115/66 06/28/17 09:09 75 115/66 06/28/17 06:50 98.3 F 75 20 115/66 06/27/17 22:00 17 DSM 5 Symptoms Update: Patient is a 57 year old -M[place] female, psychiatric history of depression, no previous history of psychiatric admissions who was admitted on the medical side status post intentional overdose on her antidepressant Viibryd x12 tablets. pt was transferred from ICU to the psychiatric inpatient for stabilization. pt was seen today at the tx team room, pt presented with improved personal hygiene, was calm, cooperative, some psychomotor retardation. pt reported that she was on depakote once a day dose, will give xl form, pt willing to increase wellbutrin. pt reported that she did not sleep last night, willing to increase dose of sonata. over the weekend pt had upset stomach and said "I think my Crohns is acting up " now she feels better. Patient was upset over the fact her daughter made statement that she will be not going to their house anymore but will keep bringing pt's grandson to visit. "I am fine with that, whatever she wants". Diagnostic Results: rule out major depressive disorder Rule out mood disorder due to general medical condition Medication Change: Yes (depakote am xl, wellbutrin increased and xl) Medical Record Reviewed: Yes Consults ordered or reviewed: medical consult appreciated Mental Status Examination - Cognitive Function Orientation: Person, Place, Situation Memory: Intact Attention: WNL Concentration: WNL Association: WNL - Mood Mood: Depressed ("I feel better than I look"), Anxious - Affect Affect: Constricted (reactive, mood congruent) - Speech Speech: Appropriate - Formal Thought Process Formal Thought Process: No Impairment - Suicidal Ideation Suicidal Ideation: No - Homicidal Ideation Homicidal Ideation: No Goal/Treatment Plan - Goal/Treatment Plan Need for Continued Stay: Remain at risks for inpatient hospitalization, Severe depression anxiety, Discharge may exacerbated symptoms, Severe functional impairment Progress Toward Problem(s) and Goals/Treatment Plan: milieu, structure, supportive therapy Divalproex XL 1000mg po a day will be continued most likely this medication prescribed for migraine headaches Metoprolol Succinate [Toprol XL] 25 mg PO QAM will be continued Topiramate [Topamax] 100 mg PO at night will be continued acetaZOLAMIDE [Diamox Sequels 500 mg SR Cap] 500 mg PO BID will be continued Pantoprazole [Protonix EC Tab] 40 mg PO DAILY will be continued Verapamil [Calan Tab] 80 mg PO TID will continue Atorvastatin [Lipitor] 10 mg PO DIN we'll continue patient was seen by medical team, consult appreciated Wellbutrin XL 150 mg daily for major depressive disorder Sonata 10mg hs as needed for insomnia director of social services evaluation Family involvement Follow up on labs Will monitor closely Pt was educated about risk/benefits and alternatives of medications, coping strategies (safety plan, suicide prevention), relapse prevention, importance of follow up with psychiatrist and therapist, stay away from drugs/alcohol/smoking Estimated Date of D/C: 07/04/17
--- NOTE | 2017-07-02 15:02 | CON ---
DATE: 07/02/2017 HISTORY OF PRESENT ILLNESS: I examined Mrs. Milian this morning. 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 The patient was admitted after apparently an overdose on one of her psych medications. This is a new medication trial apparently which was unsuccessful which was being attempted in addition to her usual medication, Xanax, which she takes on a b.i.d. or t.i.d. basis. A consult was called today because of exacerbation of abdominal pain due to the current issue as well as excess stress at home. Note that in the past, the patient had multiple steroid tapers, which had been taken in addition to her Humira, which is dosed as 40 mg subcutaneous on a weekly basis. Note that, the patient can use her own Humira Pen if she will be in the hospital for a protracted time. In the past, she has also used Remicade as well as 6-mercaptopurine. At bedside this morning, the patient relayed the pain as roughly 7/10 with some small degree of nausea. She is afraid to eat due to diarrhea and pain issues. No hematemesis or rectal bleeding. PHYSICAL EXAMINATION: VITAL SIGNS: I reviewed this patient's vital signs. HEENT: Noncontributory. LUNGS: Decreased breath sounds, basilar. HEART: Regular rhythm. ABDOMEN: Distended. Tender periumbilical above the umbilicus, especially in the area left to the umbilicus in all 4 quadrants. Left lower quadrant is where the pain is more severe. LABORATORY DATA: I reviewed this patient's laboratory data. CBC, metabolic pretty much noncontributory. OVERALL ASSESSMENT: This is a 57-year-old black female with a history of a steroid refractory Crohn's, on TNF inhibitors on a weekly basis. For Crohn's flare, the patient was initially started on prednisone 25 mg daily for the next couple of days by Dr. Rae. For pain control, I started oxycodone, low-dose 10 mg every 6 hours p.o. She may use Zofran if there are nausea issues. In addition, because of her severe left lower quadrant pain, she has used Rowasa enemas in the past. I ordered Rowasa to start tonight. The patient is very familiar with steroid taper regimens. The patient is afraid to eat due to diarrhea issues, therefore, I discontinued the standard diet and ordered a small volume liquid diet as per patient's request. Homero Golden DO, PhD ELEAZAR
[2017-07-02] MEDS: Home Med 1 UNIT OU SCH (22:56)
[2017-07-03] MEDS ORDERED: Divalproex 500 mg ER (ONCE DAILY formulation) PO SCH (08:00)
[2017-07-03] MEDS: buPROPion 150 mg/24 Hours XL Tab PO SCH (09:00)
[2017-07-03] MEDS: Metoprolol Succinate 25 mg XL Tab PO SCH (09:00)
[2017-07-03] MEDS: Pantoprazole 40 mg EC Tab PO SCH (09:00)
[2017-07-03] MEDS: acetaZOLAMIDE 500 mg SR Cap PO SCH ×2 (09:01→17:42)
[2017-07-03] MEDS: Divalproex 500 mg ER (ONCE DAILY formulation) PO SCH (09:01)
--- NOTE | 2017-07-03 14:13 | PCM.PYCHPN ---
Psychiatric Progress Note - Psychiatric Progress Note Patient seen today, length of contact: 30min Patient Chief Complaint: "I few little better" Problems Identified/Issues Discussed: Suicide/ homicide prevention, past psychiatric h/o, current psychiatric symptoms , medical problems, risk/benefits and alternatives of medications, medications compliance, coping strategies, substance abuse h/o, relapse prevention, importance of follow up with psychiatrist and therapist, discharge plan. Medical Problems: see HPI Diagnostic Results: 06/29/17 07:00 06/29/17 07:00 Lab Results 06/29/17 07:00: Sodium 144, Potassium 3.7, Chloride 111 H, Carbon Dioxide 22, Anion Gap 14, BUN 14, Creatinine 1.1, Est GFR ( Amer) > 60, Est GFR (Non- Af Amer) 51, Random Glucose 97, Calcium 9.5, Total Bilirubin 0.3, AST 26, ALT 27 , Alkaline Phosphatase 75, Total Protein 7.0, Albumin 3.7, Globulin 3.2, Albumin /Globulin Ratio 1.1 06/29/17 07:00: WBC 5.9 D, RBC 4.07, Hgb 12.4, Hct 39.0, MCV 95.8, MCH 30.5, MCHC 31.8, RDW 14.8 H, Plt Count 223, MPV 11.1 H 06/28/17 07:00: RPR Nonreactive 06/28/17 07:00: TSH 3rd Generation 1.40 06/28/17 07:00: Fasting Glucose 86, Triglycerides 142, Cholesterol 179, LDL Cholesterol Direct 78, HDL Cholesterol 62 H Vital Signs Temp Pulse Resp BP 07/02/17 12:42 78 141/94 H 07/02/17 10:13 66 131/66 07/02/17 09:04 66 131/88 07/02/17 07:21 98.4 F 66 20 131/68 07/01/17 17:11 66 134/75 07/01/17 16:13 59 L 137/75 07/01/17 13:07 60 147/84 07/01/17 10:03 73 121/71 07/01/17 08:35 74 125/73 07/01/17 07:00 98.3 F 74 18 125/73 07/01/17 06:37 98.3 F 74 18 125/73 06/30/17 17:36 60 129/64 04/07/18 15:00 97.6 F 60 20 129/60 06/30/17 13:19 73 114/68 06/30/17 10:09 77 120/74 06/30/17 08:42 75 117/70 06/30/17 06:45 98.1 F 75 19 117/70 06/29/17 17:27 87 137/74 06/29/17 15:00 87 137/74 06/29/17 14:00 61 145/86 06/29/17 09:42 65 100/66 06/29/17 09:41 65 100/56 L 06/29/17 07:00 98 F 65 20 100/56 L 06/29/17 06:16 98 F 65 20 100/56 L 06/28/17 17:53 70 142/83 06/28/17 15:00 70 142/83 06/28/17 14:08 75 116/68 06/28/17 09:11 75 115/66 06/28/17 09:09 75 115/66 06/28/17 06:50 98.3 F 75 20 115/66 06/27/17 22:00 17 DSM 5 Symptoms Update: Patient is a 57 year old -[place] female, psychiatric history of depression, no previous history of psychiatric admissions who was admitted on the medical side status post intentional overdose on her antidepressant Viibryd x12 tablets. pt was transferred from ICU to the psychiatric inpatient for stabilization. pt was seen today next to the nursing station, patient reported that her mood is "better", patient reported to feel happy to be alive, patient reported in case of suicidal ideation "I was admitted myself, I will not act on my thoughts ". Patient denied thoughts of harming herself or others, denied intent or plan, patient does not present to be psychotic or disorganized. pt c/o Crohn Flair up, pt said that she was not able to sleep with no pain meds , pt was seen by GI team . mood is improving, "now I feel better". patient tolerates medications well, no side effects observed or reported, aims 0 , no EPS. Diagnostic Results: rule out major depressive disorder Rule out mood disorder due to general medical condition Medication Change: No (adjusted yesterday) Medical Record Reviewed: Yes Mental Status Examination - Cognitive Function Orientation: Person, Place, Situation Memory: Intact Attention: WNL Concentration: WNL Association: WNL - Mood Mood: Depressed ("I feel better than I look"), Anxious - Affect Affect: Constricted (reactive, mood congruent) - Speech Speech: Appropriate - Formal Thought Process Formal Thought Process: No Impairment - Suicidal Ideation Suicidal Ideation: No - Homicidal Ideation Homicidal Ideation: No Goal/Treatment Plan - Goal/Treatment Plan Need for Continued Stay: Remain at risks for inpatient hospitalization, Severe depression anxiety, Discharge may exacerbated symptoms, Severe functional impairment Progress Toward Problem(s) and Goals/Treatment Plan: milieu, structure, supportive therapy Divalproex XL 1000mg po a day will be continued most likely this medication prescribed for migraine headaches Metoprolol Succinate [Toprol XL] 25 mg PO QAM will be continued Topiramate [Topamax] 100 mg PO at night will be continued acetaZOLAMIDE [Diamox Sequels 500 mg SR Cap] 500 mg PO BID will be continued Pantoprazole [Protonix EC Tab] 40 mg PO DAILY will be continued Verapamil [Calan Tab] 80 mg PO TID will continue Atorvastatin [Lipitor] 10 mg PO DIN we'll continue patient was seen by medical team, consult appreciated Wellbutrin XL 150 mg daily for major depressive disorder Sonata 10mg hs as needed for insomnia 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
[2017-07-03] MEDS: Home Med 1 UNIT OU SCH (22:15)
[2017-07-04 07:22] VITALS: RESP 20; TEMP 98.6
[2017-07-04] MEDS: Pantoprazole 40 mg EC Tab PO SCH (08:12)
[2017-07-04] MEDS: Divalproex 500 mg ER (ONCE DAILY formulation) PO SCH (08:30)
[2017-07-04] MEDS: buPROPion 150 mg/24 Hours XL Tab PO SCH (08:30)
[2017-07-04] MEDS: acetaZOLAMIDE 500 mg SR Cap PO SCH (08:30)
[2017-07-04] MEDS: Metoprolol Succinate 25 mg XL Tab PO SCH (09:41)
--- NOTE | 2017-07-04 10:30 | PN ---
DATE: 07/04/2017 SUBJECTIVE: I saw Ms. Milian this morning. She is a 57-year-old black female with past medical history of Crohn's enterocolitis. The patient is currently steroid refractory requiring high-dose Humira, anti-TNF inhibitor at dose of 40 mg weekly by subcutaneous injection. At bedside this morning, the patient indicates very little pain. The prednisone worked very well in addition to the use of Rowasa enemas on a nightly basis, pain is diminutive and she feels comfortable with the results. Diet can be advanced as tolerated. The treatment regimen including resumption of her anti-TNF medications plus use of Rowasa and prednisone taper were reviewed at the bedside. The patient can be followed up with me in the office. I will sign off the case today. Homero Golden DO, PhD MTDSimon
[2017-07-04 13:02] VITALS: BP 138/85; PULSE 81
--- NOTE | 2017-07-04 15:55 | PCM.PYCHDC ---
Mental Status Examination - Mental Status Examination Orientation: Person, Place, Situation, Time Memory: Intact Mood: Neutral Affect: Constricted (but reactive and mood congruent) Speech: Appropriate Attention: WNL Concentration: WNL Association: WNL Fund of Knowledge: WNL Formal Thought Process: No Impairment Description of patient's judgement and insight: Pt has improved insight into mental and medical illness, pt was compliant with medications and unit rules and regulations, pt was going to groups, was calm, cooperative, socially appropriate, no behavioral incidents, no agitation, no aggression. Psychotic Thoughts and Behaviors: Pt denied v/a/t hallucinations, denied paranoid ideations, pt does not appear to be psychotic, and thought process is goal directed. Suicidal Ideation: No Current Homicidal Ideation?: No Plan: pt adamantly denied thoughts of harming self or others denied intent or plan. Discharge Summary - Discharge Note Reason for Hospitalization: patient was transferred from the medical side were she was admitted status post intentional overdose on medications, patient was evaluated by , patient was found to be depressed, hopeless, helpless, required further hospitalization for depressive symptoms. Psychiatric History (includes Medical, Family, Personal Hx): see HPI Laboratory Data: 06/29/17 07:00 06/29/17 07:00 Lab Results 07/03/17 01:46: Stool Occult Blood Negative 06/29/17 07:00: Sodium 144, Potassium 3.7, Chloride 111 H, Carbon Dioxide 22, Anion Gap 14, BUN 14, Creatinine 1.1, Est GFR ( Amer) > 60, Est GFR (Non- Af Amer) 51, Random Glucose 97, Calcium 9.5, Total Bilirubin 0.3, AST 26, ALT 27 , Alkaline Phosphatase 75, Total Protein 7.0, Albumin 3.7, Globulin 3.2, Albumin /Globulin Ratio 1.1 06/29/17 07:00: WBC 5.9 D, RBC 4.07, Hgb 12.4, Hct 39.0, MCV 95.8, MCH 30.5, MCHC 31.8, RDW 14.8 H, Plt Count 223, MPV 11.1 H 06/28/17 07:00: RPR Nonreactive 06/28/17 07:00: TSH 3rd Generation 1.40 06/28/17 07:00: Fasting Glucose 86, Triglycerides 142, Cholesterol 179, LDL Cholesterol Direct 78, HDL Cholesterol 62 H Vital Signs Temp Pulse Resp BP 07/04/17 12:59 81 138/85 07/04/17 09:41 88 139/82 07/04/17 08:29 73 106/60 07/04/17 07:21 98.6 F 73 20 106/60 07/03/17 17:40 74 132/76 07/03/17 15:32 74 132/76 07/03/17 13:19 73 145/84 07/03/17 09:01 80 129/64 07/03/17 09:00 80 129/64 07/03/17 06:40 97.6 F 80 17 129/64 07/02/17 17:21 60 131/66 07/02/17 15:34 60 131/66 07/02/17 12:42 78 141/94 H 07/02/17 10:13 66 131/66 07/02/17 09:04 66 131/88 07/02/17 07:21 98.4 F 66 20 131/68 07/01/17 17:11 66 134/75 07/01/17 16:13 59 L 137/75 07/01/17 13:07 60 147/84 07/01/17 10:03 73 121/71 07/01/17 08:35 74 125/73 07/01/17 07:00 98.3 F 74 18 125/73 07/01/17 06:37 98.3 F 74 18 125/73 06/30/17 17:36 60 129/64 06/30/17 15:00 97.6 F 60 20 129/60 06/30/17 13:19 73 114/68 06/30/17 10:09 77 120/74 06/30/17 08:42 75 117/70 06/30/17 06:45 98.1 F 75 19 117/70 06/29/17 17:27 87 137/74 06/29/17 15:00 87 137/74 06/29/17 14:00 61 145/86 06/29/17 09:42 65 100/66 06/29/17 09:41 65 100/56 L 06/29/17 07:00 98 F 65 20 100/56 L 06/29/17 06:16 98 F 65 20 100/56 L 06/28/17 17:53 70 142/83 06/28/17 15:00 70 142/83 06/28/17 14:08 75 116/68 06/28/17 09:11 75 115/66 06/28/17 09:09 75 115/66 06/28/17 06:50 98.3 F 75 20 115/66 06/27/17 22:00 17 the rest of the labs see if from the medical admission Consultations:: List each consultation separately and include: 1. Reason for request. 2. Findings. 3. 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 Description of specific treatment plan utilized for patients during their course of treatmen. 2. Summarize the time- course for resolution of acute symptoms and/or regressed behaviors. 3. Describe issues identified and worked on during hospitalization. 4. Describe medication utilized. 5. Describe medical problems identified and treated. 6. Reassessment of suicide risk Summary of Hospital Course: shortly patient is 57 year old -[place] female, self reported history of depression, patient denied history of psychiatric admissions, denied history of suicidal attempts, patient was admitted on the medical side initially status post intentional overdose on medications, patient was stable from the medical standpoint, was transferred to the psychiatric inpatient unit yesterday uneventfully. Patient requires further evaluation and stabilization, medication titration. initially Patient was seen in her room with medical student, patient presented with acceptable personal hygiene but patient appears to be careless about her appearance no makeup on, the currently wig which seems to be messy, good ADLs. patient appears to be alert and oriented, pleasant corporative, initially patient was tearful but later on patient was able to smile few times. Patient reported that she suffered from depression for "years", patient reported that she never been admitted to psychiatric inpatient unit before, patient was seen by Dr. Diaz in the community prescribed 3 delirium as well as Xanax. A patient reported being compliant with the medications, patient said on Prozac she had suicidal ideations with a plan to walk into the traffic, that's why ritalin was prescribed. pt said she became more depressed and hopeless, patient said that she had no energy, "I was sleeping hold a long", after treated in and Xanax was prescribed "I feel much better, I felt like myself again". pt reported that yesterday she had an argument with her daughter, patient said that "my daughter was screaming and yelling, she said that I made her feel guilty", patient reported that she try to distract herself from that by watching TV, but she couldn't do so, then patient went to her room started to overdose on her medical medications, patient has been to walk into the room and found her taking pills, call 911. patient said that she feels "happy to be alive ", patient denied that she wanted to kill herself, patient reported that her intent was "to relax, I want everybody to shut up". Patient said for past few months she didn't think to end up her life, patient denied previous suicidal attempts, denied thoughts of harming herself or others at present moment of interview. Patient denied that she feels anxious, patient denied history of being abused. Patient denied hearing voices denied seeing things denied paranoid ideation. Patient denied using any drugs, denied drinking alcohol, history of smoking, but not currently. No manic symptoms elicited. medical h/o: HTN, pseudutumor cerebri, pt was seen by neurologist , HTN, obesity, crohn's disease, glaucoma, s/p overdose on Viibryd, pt lost about 8Lb since March. family h/o: pt's Brother suffers from schizophrenia, present moment "I don't know where he is", patient reported her brother with mental illness try to commit suicide in the past. pt was seen by medical team today. Lab Results 06/28/17 07:00: TSH 3rd Generation 1.40 06/28/17 07:00: Fasting Glucose 86, Triglycerides 142, Cholesterol 179, LDL Cholesterol Direct 78, HDL Cholesterol 62 H Vital Signs Temp Pulse Resp BP 06/28/17 09:11 75 115/66 06/28/17 09:09 75 115/66 06/28/17 06:50 98.3 F 75 20 115/66 06/27/17 22:00 17 Patient's pharmacy was called [phone] Crestor 200 mg daily Metoprolol XL 25 mg daily Verapamil 80 mg 3 times a day Acetetazolamide SL 500mg po bid Nortriptyline 25 mg at the nighttime will d/c Depakote 500 mg twice a day will continue Topamax 100 mg at the nighttime will continue patient was stabilized on the following medications: Divalproex XL 1000mg po a day most likely this medication prescribed for migraine headaches Topiramate [Topamax] 100 mg PO for mood stabilization Wellbutrin XL 150 mg daily for major depressive disorder Sonata 10mg hs as needed for insomnia patient tolerated medications well, no side effects observed or reported, aims 0 , no EPS. Over the course of this hospitalization pt was attending groups, pt also had medication management, had therapeutic milieu. Overall pt improved significantly, pt's affect became brighter, pt was less depressed, has realistic future oriented plans, pt also does not appear to be psychotic, or anxious, pt was socially appropriate, no behavioral issues, pts insight improved as well and soon pt deemed to be ready for discharge. At the time of the discharge pt denied been depressed, denied thoughts of harming self or others, denied psychotic symptoms, and pt does not appeared to be psychotic, denied been anxious, pt is not in imminent danger to self or others, will be following up with her outpatient psychiatrist , information about follow up appointment, time and address provided to the pt, it is patient responsibility to follow up with outpatient clinic, PMD as well as specialists ( see SW note for more detailed information). In case pt will need to obtain results of studies pending at discharge pt was provided with contact information of Psychiatric Inpatient unit [phone] as well as Medical Record Department [phone]. pt was provided with prescriptions for all of medications (please see medication reconciliation form) Pt was educated about safety plan in case of worsening of symptoms or in case of suicidal or homicidal ideation call 911 or go to the nearest ER, also was educated to take meds as prescribed and stay away from drugs, pt verbalized understanding. - Diagnosis (1) MDD (major depressive disorder) Current Visit: Yes Status: Chronic Priority: High - Final Diagnosis (DSM 5) Condition upon Discharge: GOOD Disposition: HOME/ ROUTINE Follow-up Treatment Plan: At the time of the discharge pt denied been depressed, denied thoughts of harming self or others, denied psychotic symptoms, and pt does not appeared to be psychotic, denied been anxious, pt is not in imminent danger to self or others, will be following up with her outpatient psychiatrist , information about follow up appointment, time and address provided to the pt, it is patient responsibility to follow up with outpatient clinic, PMD as well as specialists ( see SW note for more detailed information). In case pt will need to obtain results of studies pending at discharge pt was provided with contact information of Psychiatric Inpatient unit [phone] as well as Medical Record Department [phone]. pt was provided with prescriptions for all of medications (please see medication reconciliation form) Pt was educated about safety plan in case of worsening of symptoms or in case of suicidal or homicidal ideation call 911 or go to the nearest ER, also was educated to take meds as prescribed and stay away from drugs, pt verbalized understanding. Prescriptions/Medication Reconciliation: RX: acetaZOLAMIDE [Diamox Sequels 500 mg SR Cap] 500 mg PO BID #30 cer RX: Atorvastatin [Lipitor] 10 mg PO DIN #30 tab RX: buPROPion XL [Wellbutrin XL] 150 mg PO DAILY #14 t24 RX: clonazePAM [Klonopin] 0.5 mg PO HS #14 tab RX: Divalproex [Depakote ER(ONCE DAILY)] 1,000 mg PO DAILY #30 ter RX: Divalproex [Depakote DR] 500 mg PO DAILY #30 tcp RX: FLUoxetine [Prozac] 10 mg PO DAILY #30 cap RX: Metoprolol Succinate [Toprol XL] 25 mg PO QAM #30 tab RX: Pantoprazole [Protonix EC Tab] 40 mg PO DAILY #30 ect RX: Topiramate [Topamax] 100 mg PO 1800 #14 tab RX: Topiramate [Topamax] 100 mg PO DAILY #30 tab RX: Verapamil [Calan Tab] 80 mg PO TID #30 tab Zaleplon [Sonata] 10 mg PO HS #14 capsule - Smoking Cessation Smoking Cessation Medication prescribed: No Reason for not providing: patient does not smoke - Antipsychotic Medications Pt discharged on 2 or more routine antipsychotic medications: No
== END 2017-07-04 16:39 | disposition home or self-care (01) | DRG 881 ==
LOC: PSYC 18:52
PROVIDERS: ADMIT Psychiatry & Neurology Psychiatry; ATTEND Psychiatry & Neurology Psychiatry
DX: F32.9 Major depressive disorder, single episode, unspecified (principal); K50.90 Crohn's disease, unspecified, without complications; I10 Essential (primary) hypertension; H40.9 Unspecified glaucoma; G43.909 Migraine, unspecified, not intractable, without status migrainosus; G93.2 Benign intracranial hypertension; F17.200 Nicotine dependence, unspecified, uncomplicated; D64.9 Anemia, unspecified; M19.90 Unspecified osteoarthritis, unspecified site; Z91.5 Personal history of self-harm

== ENCOUNTER 2018-01-02 09:47 | Emergency (ER) | payer MEDICARE, BC ==
[2018-01-02 10:03] VITALS: RESP 18; BMI 39.0
[2018-01-02 11:39] LABS: VENOUS BLOOD GAS BASE EXCESS -6.5 mmol/L (0.0-2.0); VENOUS BLOOD GAS PO2 49 mm/Hg (30-55); VENOUS BLOOD PH 7.23 (7.32-7.43)
[2018-01-02 11:45] LABS: BASO # 0.02 K/mm3 (0.0-2.0); BASO % 0.3 % (0.0-3.0); EOS # 0.2 (0.0-0.7); EOS % 2.7 % (1.5-5.0); GRAN # 2.77 (1.4-6.5); GRAN % 46.2 % (50.0-68.0); HEMOGLOBIN 12.2 g/dL (12.0-16.0); LYMPH # 2.6 (1.2-3.4); LYMPH % 43.8 % (22.0-35.0); MEAN CELL VOLUME 91.9 fl (80.0-105.0); MEAN CORPUSCULAR HEMOGLOBIN 29.9 pg (25.0-35.0); MEAN CORPUSCULAR HGB CONC 32.5 g/dl (31.0-37.0); MEAN PLATELET VOLUME 11.2 fl (7.0-11.0); MONO # 0.4 (0.1-0.6); RBC 4.08 10^6/uL (3.5-6.1); RED CELL DISTRIBUTION WIDTH 14.2 % (11.5-14.5)
[2018-01-02 11:46] LABS: URINE BILIRUBIN NEGATIVE (NEGATIVE); URINE GLUCOSE (UA) NEGATIVE (NEGATIVE); URINE PROTEIN NEGATIVE mg/dL (<30 mg/dL); URINE UROBILINOGEN 0.2 E.U./dL (<1 E.U./dL)
[2018-01-02 11:49] LABS: INR 0.93; PARTIAL THROMBOPLASTIN TIME 31.5 Seconds (25.1-36.5); PROTHROMBIN TIME 10.7 SECONDS (9.4-12.5); URINE APPEARANCE CLEAR (CLEAR); URINE COLOR YELLOW (YELLOW)
[2018-01-02 11:50] LABS: ALB/GLOB RATIO 1.3 (1.1-1.8); ALBUMIN 3.9 g/dL (3.0-4.8); AMYLASE 66 U/L (35-125); BLOOD UREA NITROGEN 17 mg/dL (7-21); CALCIUM 9.1 mg/dL (8.4-10.5); GFR NON-AFRICAN AMERICAN 51; LIPASE 72 U/L (23-300)
[2018-01-02 11:51] LABS: ALT/SGPT 36 U/L (7-56); AST/SGOT 36 U/L (14-36)
[2018-01-02 12:01] LABS: TROPONIN I < 0.01 ng/mL
[2018-01-02 12:21] LABS: URINE BLOOD TRACE-INTACT (NEGATIVE)
[2018-01-02 12:22] LABS: URINE LEUKOCYTE ESTERASE NEG Leu/uL (NEGATIVE)
[2018-01-02] MEDS ORDERED: Sodium Chloride 0.9% 1,000 ML IV STA (12:22)
[2018-01-02 12:24] LABS: URINE BACTERIA MOD (NEG); URINE WBC 0 - 2 /hpf (0-6)
--- NOTE | 2018-01-02 12:30 | ED PDOC ---
Arrival/HPI - General Historian: Patient - History of Present Illness Narrative History of Present Illness (Text): 01/02/18 12:23 57yo female with pmhx of hypertension and Crohn's referred to ED by Dr. Golden for 3days history of abdominal pain with associated diarrhea. Patient states she was on prednisone without any improvement, so the GI sent her to ED for hydrocortisone injection. She otherwise denies nausea, vomiting, fever, chills, urinary symptoms, chest pain, SOB, diaphoresis, dizziness, any other complaint. <Mandy Garcia - Last Filed: 01/02/18 15:13> <Scott Barraza - Last Filed: 01/07/18 18:47> - General Chief Complaint: GI Problem Time Seen by Provider: 01/02/18 09:57 Past Medical History - Provider Review Nursing Documentation Reviewed: Yes - Infectious Disease Hx of Infectious Diseases: None - Tetanus Immunization Tetanus Immunization: Unknown - Cardiac Hx Cardiac Disorders: Yes Hx Hypertension: Yes - Pulmonary Hx Respiratory Disorders: No - Neurological Hx Neurological Disorder: Yes Hx Migraine: Yes - HEENT Hx HEENT Disorder: Yes Hx Cataracts: Yes (left eye) Hx Glaucoma: Yes (both eyes) Other/Comment: pseudotumor left eye removed - Renal Hx Renal Disorder: No - Endocrine/Metabolic Hx Endocrine Disorders: Yes Other/Comment: thyroid nodules - Hematological/Oncological Hx Blood Disorders: No - Integumentary Hx Dermatological Disorder: Yes Hx Eczema: Yes - Musculoskeletal/Rheumatological Hx Musculoskeletal Disorders: Yes - Gastrointestinal Hx Gastrointestinal Disorders: Yes Hx Crohn's Disease: Yes - Genitourinary/Gynecological Hx Genitourinary Disorders: No - Psychiatric Hx Emotional Abuse: No Hx Physical Abuse: No Hx Sexual Abuse: No Hx Substance Use: No - Surgical History Hx Orthopedic Surgery: Yes (L KNEE, R KNEE, B/L WRISTS) - Anesthesia Hx Anesthesia: Yes Hx Anesthesia Reactions: No Hx Malignant Hyperthermia: No - Suicidal Assessment Feels Threatened In Home Enviroment: No <Mandy Garcia A - Last Filed: 01/02/18 15:13> Family/Social History - Physician Review Nursing Documentation Reviewed: Yes Family/Social History: Unknown Family HX Smoking Status: Former Smoker Hx Alcohol Use: No Hx Substance Use: No Hx Substance Use Treatment: No <Mandy Garcia - Last Filed: 01/02/18 15:13> Allergies/Home Meds <Mandy Garcia A - Last Filed: 01/02/18 15:13> <Scott Barraza - Last Filed: 01/07/18 18:47> Allergies/Adverse Reactions: Allergies No Known Allergies Allergy (Verified 01/02/18 09:56) Review of Systems - Physician Review All systems were reviewed & negative as marked: Yes - Review of Systems Constitutional: Normal Eyes: Normal ENT: Normal Respiratory: Normal Cardiovascular: Normal Gastrointestinal: Abdominal Pain, Diarrhea. absent: Constipation, Nausea, Vomiting, Hematochezia, Hematemesis Genitourinary Female: Normal Musculoskeletal: Normal Skin: Normal Neurological: Normal Endocrine: Normal Hemo/Lymphatic: Normal Psychiatric: Normal <Mandy Garcia A - Last Filed: 01/02/18 15:13> Physical Exam Vital Signs Reviewed: Yes Vital Signs Temp Pulse Resp BP Pulse Ox 01/02/18 10:00 98.1 F 86 18 137/74 99 Temperature: Afebrile Blood Pressure: Normal Pulse: Regular Respiratory Rate: Normal Appearance: Positive for: Well-Appearing, Non-Toxic, Comfortable Pain Distress: None Mental Status: Positive for: Alert and Oriented X 3 - Systems Exam Head: Present: Atraumatic, Normocephalic Pupils: Present: PERRL Extroacular Muscles: Present: EOMI Conjunctiva: Present: Normal Mouth: Present: Moist Mucous Membranes Neck: Present: Normal Range of Motion Respiratory/Chest: Present: Clear to Auscultation, Good Air Exchange. No: Respiratory Distress, Accessory Muscle Use Cardiovascular: Present: Regular Rate and Rhythm, Normal S1, S2. No: Murmurs Abdomen: Present: Tenderness (Paraumbilical tenderness), Normal Bowel Sounds, Guarding (Voluntary), Other (Soft). No: Distention, Peritoneal Signs, Rebound, McBurney's Point Tender, Rovsing's Sign Present Back: Present: Normal Inspection Upper Extremity: Present: Normal Inspection. No: Cyanosis, Edema Lower Extremity: Present: Normal Inspection. No: Edema Neurological: Present: GCS=15, CN II-XII Intact, Speech Normal Skin: Present: Warm, Dry, Normal Color. No: Rashes Psychiatric: Present: Alert, Oriented x 3, Normal Insight, Normal Concentration <Mandy Garcia A - Last Filed: 01/02/18 15:13> Vital Signs Temp Pulse Resp BP Pulse Ox 01/02/18 16:15 98 F 78 18 138/76 98 01/02/18 14:39 78 18 130/61 98 01/02/18 12:00 73 18 128/79 99 01/02/18 10:00 98.1 F 86 18 137/74 99 <Scott Barraza - Last Filed: 01/07/18 18:47> Medical Decision Making ED Course and Treatment: 01/02/18 15:13 57yo female referred to ED by Dr. Golden for periumbilical pain x 3days with diarrhea. Case was DW Dr. Golden. He requested two doses of hydrocortisone with 2 hours inbetween the medication. States patient's pain usually improved with hydrocortisone. Labs ordered 1L Ns Protonix Hydrocortisone ordered EKG On re evaluation pt states she feel much better. She was noted drinking soa and coffee in ED. Second dose of hydrocortisone was given Labs was unremarkable and was DW the pt EKG NSR @70bpm. Normal interval. Normal axis. She will be DC home to f/u with Dr. Golden - Lab Interpretations Lab Results: 01/02/18 11:30 01/02/18 11:30 Lab Results 01/02/18 11:30: pO2 49, VBG pH 7.23 L, VBG pCO2 51.0, VBG HCO3 21.4, VBG Total CO2 23.0, VBG O2 Sat (Calc) 85.4 H, VBG Base Excess -6.5 L, VBG Potassium 5.1, Sodium 138.0, Chloride 112.0 H, Glucose 87, Lactate 1.2, FiO2 21.0, Venous Blood Potassium 5.1 01/02/18 11:30: Sodium 142, Chloride 112 H, Potassium 4.2, Carbon Dioxide 22, Anion Gap 12, BUN 17, Creatinine 1.1, Est GFR ( Amer) > 60, Est GFR (Non- Af Amer) 51, Random Glucose 90, Calcium 9.1, Total Bilirubin 0.4, AST 36, ALT 36, Alkaline Phosphatase 67, Lactate Dehydrogenase 860 H, Total Creatine Kinase 216, Troponin I < 0.01, Total Protein 6.9, Albumin 3.9, Globulin 3.0, [place] min/Globulin Ratio 1.3, Amylase 66, Lipase 72 01/02/18 11:30: Urine Color Yellow, Urine Appearance Clear, Urine pH 6.0, Ur Specific [place] 1.015, Urine Protein Negative, Urine Glucose (UA) Negative, Urine Ketones Negative, Urine Blood Trace-intact H, Urine Nitrate Negative, Urine Bilirubin Negative, Urine Urobilinogen 0.2, Ur Leukocyte Esterase Neg, Urine RBC Pending, Urine WBC Pending 01/02/18 11:30: PT 10.7, INR 0.93, APTT 31.5 01/02/18 11:30: WBC 6.0, RBC 4.08, Hgb 12.2, Hct 37.5, MCV 91.9, MCH 29.9, MCHC 32.5, RDW 14.2, Plt Count 322, MPV 11.2 H, Gran % 46.2 L, Lymph % (Auto) 43.8 H, [place] % (Auto) 7.0 H, Eos % (Auto) 2.7, Baso % (Auto) 0.3, Gran # 2.77, Lymph # (Auto) 2.6, [place] # (Auto) 0.4, Eos # (Auto) 0.2, Baso # (Auto) 0.02 - Medication Orders Current Medication Orders: Sodium Chloride (Sodium Chloride 0.9%) 1,000 mls @ 999 mls/hr IV .Q1H1M STA Stop: 01/02/18 13:22 Discontinued Medications Hydrocortisone Sodium Succinate (Solu-Cortef) 100 mg IVP STAT STA Stop: 01/02/18 10:49 Last Admin: 01/02/18 11:33 Dose: 100 mg IVP Administration Document 01/02/18 11:33 [facility] (Rec: 01/02/18 11:34 [id number] Charges for Administration # of IVP Administrations 1 Pantoprazole Sodium (Protonix Inj) 40 mg IVP STAT STA Stop: 01/02/18 10:48 Last Admin: 01/02/18 11:33 Dose: 40 mg IVP Administration Document 01/02/18 11:33 [facility] (Rec: 01/02/18 11:33 [id number] Charges for Administration # of IVP Administrations 1 <Diru,Happiness A - Last Filed: 01/02/18 15:13> - Lab Interpretations Microbiology Results: Microbiology Results 01/02/18 12:00 Blood-Venous Blood Culture - Final NO GROWTH AFTER 5 DAYS 01/02/18 12:00 Blood-Venous Gram Stain - Final TEST NOT PERFORMED 01/02/18 11:30 Blood-Venous Blood Culture - Final NO GROWTH AFTER 5 DAYS 01/02/18 11:30 Blood-Venous Gram Stain - Final TEST NOT PERFORMED 01/02/18 12:00 Urine,Clean Catch Urine Culture - Final No Growth (<1,000 CFU/ML) Lab Results: 01/02/18 11:30 01/02/18 11:30 Lab Results 01/02/18 11:30: pO2 49, VBG pH 7.23 L, VBG pCO2 51.0, VBG HCO3 21.4, VBG Total CO2 23.0, VBG O2 Sat (Calc) 85.4 H, VBG Base Excess -6.5 L, VBG Potassium 5.1, Sodium 138.0, Chloride 112.0 H, Glucose 87, Lactate 1.2, FiO2 21.0, Venous Blood Potassium 5.1 01/02/18 11:30: Sodium 142, Chloride 112 H, Potassium 4.2, Carbon Dioxide 22, Anion Gap 12, BUN 17, Creatinine 1.1, Est GFR ( Amer) > 60, Est GFR (Non- Af Amer) 51, Random Glucose 90, Calcium 9.1, Total Bilirubin 0.4, AST 36, ALT 36, Alkaline Phosphatase 67, Lactate Dehydrogenase 860 H, Total Creatine Kinase 216, Troponin I < 0.01, Total Protein 6.9, Albumin 3.9, Globulin 3.0, Albumin/Globulin Ratio 1.3, Amylase 66, Lipase 72 01/02/18 11:30: Urine Color Yellow, Urine Appearance Clear, Urine pH 6.0, Ur Specific [place] 1.015, Urine Protein Negative, Urine Glucose (UA) Negative, Urine Ketones Negative, Urine Blood Trace-intact H, Urine Nitrate Negative, Urine Bilirubin Negative, Urine Urobilinogen 0.2, Ur Leukocyte Esterase Neg, Urine RBC 2 - 5, Urine WBC 0 - 2, Ur Epithelial Cells 4 - 5, Urine Bacteria Mod 01/02/18 11:30: PT 10.7, INR 0.93, APTT 31.5 01/02/18 11:30: WBC 6.0, RBC 4.08, Hgb 12.2, Hct 37.5, MCV 91.9, MCH 29.9, MCHC 32.5, RDW 14.2, Plt Count 322, MPV 11.2 H, Gran % 46.2 L, Lymph % (Auto) 43.8 H, [place] % (Auto) 7.0 H, Eos % (Auto) 2.7, Baso % (Auto) 0.3, Gran # 2.77, Lymph # (Auto) 2.6, [place] # (Auto) 0.4, Eos # (Auto) 0.2, Baso # (Auto) 0.02 - Medication Orders Current Medication Orders: Discontinued Medications Hydrocortisone Sodium Succinate (Solu-Cortef) 100 mg IVP STAT STA Stop: 01/02/18 10:49 Last Admin: 01/02/18 11:33 Dose: 100 mg IVP Administration Document 01/02/18 11:33 [facility] (Rec: 01/02/18 11:34 [id number] Charges for Administration # of IVP Administrations 1 Hydrocortisone Sodium Succinate (Solu-Cortef) 50 mg IM STAT STA Stop: 01/02/18 15:13 Last Admin: 01/02/18 15:54 Dose: 50 mg IM Administration Charges Document 01/02/18 15:54 [facility] (Rec: 01/02/18 15:54 [facility] [id number]) Injection Site MAR Injection Site Left Deltoid Charges for Administration # of IM Administrations 1 Sodium Chloride (Sodium Chloride 0.9%) 1,000 mls @ 999 mls/hr IV .Q1H1M STA Stop: 01/02/18 13:22 Last Admin: 01/02/18 12:59 Dose: 999 mls/hr eMAR Start Stop Document 01/02/18 12:59 [facility] (Rec: 01/02/18 12:59 [id number] Intravenous Solution Start Date 01/02/18 Start Time 12:59 End Date 01/02/18 End time 13:59 Total Infusion Time 60 Pantoprazole Sodium (Protonix Inj) 40 mg IVP STAT STA Stop: 01/02/18 10:48 Last Admin: 01/02/18 11:33 Dose: 40 mg IVP Administration Document 01/02/18 11:33 [facility] (Rec: 01/02/18 11:33 [facility] [id number]) Charges for Administration # of IVP Administrations 1 Scott Krause - Last Filed: 01/07/18 18:47> - PA / ENVELOPE STUFFER / Resident Statement / has reviewed & agrees with the documentation as recorded. <Scott Barraza - Last Filed: 01/07/18 18:47> Disposition/Present on Arrival - Present on Arrival Any Indicators Present on Arrival: No History of DVT/PE: No History of Uncontrolled Diabetes: No Urinary Catheter: No History of Decub. Ulcer: No History Surgical Site Infection Following: None - Disposition Have Diagnosis and Disposition been Completed?: Yes Disposition Time: 15:20 Patient Plan: Discharge <Mandy Garcia - Last Filed: 01/02/18 15:13> <Scott Barraza - Last Filed: 01/07/18 18:47> - Disposition Diagnosis: Abdominal pain Disposition: HOME/ ROUTINE Condition: STABLE Discharge Instructions (ExitCare): Acute Abdomen (Belly Pain) Additional Instructions: Follow up with your Doctor/[facility] Return to ED for any new or worsening symptoms Referrals: Homero Golden DO [Staff Provider] - Follow up with primary Forms: [employer] (M[place]ese)
[2018-01-02 14:40] VITALS: PULSE 78; O2SAT 98
[2018-01-02 16:17] VITALS: BP 138/76; TEMP 98
--- NOTE | 2018-01-02 17:51 | CARD ---
APPROVED REPORT Date of service: 01/02/2018 EKG Measurement Heart [id number] <Conclusion> Normal sinus rhythm Normal ECG
== END 2018-01-02 16:17 | disposition home or self-care (01) ==
LOC: ED 09:47
DX: R10.9 Unspecified abdominal pain (principal); I10 Essential (primary) hypertension; K50.90 Crohn's disease, unspecified, without complications; Z87.891 Personal history of nicotine dependence
CPT/HCPCS: 80053; 81001; 82150; 82550; 82803; 83615; 83690; 84484; 85025; 85610; 85730; 87040; 87086; 93005; 96361; 96372; 96374; 96375; 99284; C9113; J1720; J7030

== ENCOUNTER 2018-03-31 13:16 | Emergency (ER) | payer MEDICARE, BC ==
[2018-03-31 13:16] VITALS: BMI 39.0
--- NOTE | 2018-03-31 13:33 | ED PDOC ---
Arrival/HPI - General Chief Complaint: Hip Pain Time Seen by Provider: 03/31/18 13:18 Historian: Patient - History of Present Illness Time/Duration: Other (several weeks) Symptom Onset: Gradual Symptom Course: Worsening Quality: Aching Severity Level: Moderate Activities at Onset: Rest Associated Symptoms (Text): 03/31/18 13:30 Patient complains of a several week history of a left posterior lateral hip pain. There was no injury or trauma. No low back pain. No radiation. No numbness tingling or paresthesias. No abdominal pain nausea or vomiting. She is never experienced this previously. She is able to weight-bear. She has bilateral total knee replacements. She points to her left lateral hip and buttocks. Past Medical History - Infectious Disease Hx of Infectious Diseases: None - Tetanus Immunization Tetanus Immunization: Unknown - Reproductive Menopause: Yes - Cardiac Hx Cardiac Disorders: Yes Hx Hypertension: Yes - Pulmonary Hx Respiratory Disorders: No - Neurological Hx Neurological Disorder: Yes Hx Migraine: Yes - HEENT Hx HEENT Disorder: Yes Hx Cataracts: Yes (left eye) Hx Glaucoma: Yes (both eyes) Other/Comment: pseudotumor left eye removed - Renal Hx Renal Disorder: No - Endocrine/Metabolic Hx Endocrine Disorders: Yes Other/Comment: thyroid nodules - Hematological/Oncological Hx Blood Disorders: No - Integumentary Hx Dermatological Disorder: Yes Hx Eczema: Yes - Musculoskeletal/Rheumatological Hx Musculoskeletal Disorders: Yes - Gastrointestinal Hx Gastrointestinal Disorders: Yes Hx Crohn's Disease: Yes - Genitourinary/Gynecological Hx Genitourinary Disorders: No - Psychiatric Hx Emotional Abuse: No Hx Physical Abuse: No Hx Sexual Abuse: No Hx Substance Use: No - Surgical History Hx Orthopedic Surgery: Yes (L KNEE, R KNEE, B/L WRISTS) - Anesthesia Hx Anesthesia: Yes Hx Anesthesia Reactions: No Hx Malignant Hyperthermia: No - Suicidal Assessment Feels Threatened In Home Enviroment: No Family/Social History - Physician Review Nursing Documentation Reviewed: Yes Family/Social History: Unknown Family HX Smoking Status: Former Smoker (quit smoking 10 years ago) Hx Alcohol Use: Yes Frequency of alcohol use: Few days per week Hx Substance Use: No Hx Substance Use Treatment: No Allergies/Home Meds Allergies/Adverse Reactions: Allergies No Known Allergies Allergy (Verified 03/31/18 13:22) Home Medications: Home Meds Medication Instructions Recorded Confirmed Alprazolam 1 mg PO BID 03/31/18 03/31/18 Rosuvastatin Calcium [Crestor] 20 mg PO QPM 03/31/18 03/31/18 Review of Systems - Physician Review All systems were reviewed & negative as marked: Yes - Review of Systems Constitutional: absent: Fatigue, Fevers Gastrointestinal: absent: Abdominal Pain, Nausea, Vomiting Genitourinary Female: absent: Dysuria, Frequency, Hematuria Musculoskeletal: absent: Back Pain, Neck Pain Neurological: absent: Focal Weakness, Gait Changes Physical Exam Vital Signs Temp Pulse Resp BP Pulse Ox 03/31/18 13:18 97.7 F 81 18 138/87 98 Temperature: Afebrile Blood Pressure: Normal Pulse: Regular Respiratory Rate: Normal Appearance: Positive for: Well-Appearing, Non-Toxic, Uncomfortable, Other (obese) Pain Distress: Mild Mental Status: Positive for: Alert and Oriented X 3 - Systems Exam Respiratory/Chest: Present: Clear to Auscultation, Good Air Exchange. No: Respiratory Distress, Accessory Muscle Use Abdomen: No: Tenderness, Distention, Peritoneal Signs Back: Present: Normal Inspection. No: CVA Tenderness, Midline Tenderness, Paraspinal Tenderness, Pain with Leg Raise Upper Extremity: Present: Normal Inspection. No: Cyanosis, Edema Lower Extremity: Present: Normal Inspection, Normal ROM, Neurovascularly Intact, Other (No pain with range of motion. Nontender to palpation. No swelling or skin changes. Able to weight-bear without difficulty.). No: CALF TENDERNESS, Maria Elena's Sign, Tenderness, Swelling, Erythema, Deformity Neurological: Present: GCS=15, CN II-XII Intact, Speech Normal, Motor Func Grossly Intact Skin: Present: Warm, Dry, Normal Color. No: Rashes Medical Decision Making - RAD Interpretation Radiology Orders: 03/31/18 13:29 Hip Left [HIP MIN 2V W/ PELVIS LT] [RAD] Stat PELVIS ONE VIEW [RAD] Stat Left hip and pelvis x-ray shows no fracture or dislocation. Glue Maker Bone: ED Physician Disposition/Present on Arrival - Present on Arrival Any Indicators Present on Arrival: No History of DVT/PE: No History of Uncontrolled Diabetes: No Urinary Catheter: No History of Decub. Ulcer: No History Surgical Site Infection Following: None - Disposition Have Diagnosis and Disposition been Completed?: Yes Diagnosis: Left hip pain Disposition: HOME/ ROUTINE Disposition Time: 14:04 Patient Plan: Discharge Condition: GOOD Discharge Instructions (ExitCare): Hip Pain in Older People, Joint Pain Additional Instructions: Rest and moist heat. Follow-up with PMD. Follow up in ER as needed. Prescriptions: Tramadol HCl [Ultram] 50 mg PO Q6 PRN #10 tab PRN Reason: Pain Forms: [email or web address] (Romansh)
[2018-03-31 14:25] VITALS: BP 121/52; PULSE 78; RESP 19; TEMP 98; O2SAT 99
--- NOTE | 2018-03-31 14:33 | RAD ---
Date of service: 03/31/2018 PROCEDURE: Pelvis and left hip HISTORY: pain COMPARISON: TECHNIQUE: Three views FINDINGS: There is no evidence of fracture. There are no significant degenerative changes. IMPRESSION: Negative study
== END 2018-03-31 14:22 | disposition home or self-care (01) ==
LOC: ED 13:16
DX: M25.552 Pain in left hip (principal)
CPT/HCPCS: 73502; 99284; J1885

== ENCOUNTER → 2018-07-02 | Outpatient (CLI) | payer MEDICARE, BC | LOC: LAB 11:53 ==